=== PATIENT | female | born 1975 | race Caucasian/White ===

== ENCOUNTER 2021-09-17 03:40 | Observation (INO) ==
[2021-09-17] MEDS ORDERED: ONDANSETRON INJ 2 MG/ML 2 ML VIAL IV STA (04:20)
[2021-09-17] MEDS ORDERED: SODIUM CHLORIDE 0.9% 1000ML 1,000 ML IV ONE (04:20)
[2021-09-17] MEDS ORDERED: FAMOTIDINE 20MG IV PUSH 20 MG/5 ML SYR IV STA (04:20)
[2021-09-17] MEDS ORDERED: GI COCKTAIL ED USE PO ONE (04:20)
[2021-09-17 04:30] LABS: Basophils # (auto) 0.02 K/uL (0-0.2); Basophils % (auto) 0.2 %; Eosinophils # (auto) 0.21 K/uL (0-0.5); Eosinophils % (auto) 1.9 %; Hematocrit (blood only) 35.9 % (37-47); Hemoglobin 11.8 g/dL (12.0-16.0); Immature Granulocytes # (auto) 0.01 K/uL (0.00-0.02); Immature Granulocytes % (auto) 0.1 %; Lymphocytes % (auto) 18.6 %; Mean Corpuscular Hgb Conc 32.9 g/dL (32-36); Mean Corpuscular Volume 79.2 fL (80-100); Mean Platelet Volume 9.4 fL (7.4-10.4); Monocytes # (auto) 0.66 K/uL (0.11-0.59); Monocytes % (auto) 5.8 %; Neutrophils # (auto) 8.29 K/uL (1.4-6.5); Neutrophils % (auto) 73.4 %; Platelet Count 347 K/uL (130-400); RDW Coefficient of Variation 15.2 % (11.5-14.5); RDW Standard Deviation 44.5 fL (36.4-46.3); Red Blood Count 4.53 M/uL (4.2-5.4); White Blood Count 11.29 K/uL (4.8-10.8)
[2021-09-17 04:42] LABS: Troponin I < 0.03 ng/ml (0-0.04)
[2021-09-17 04:44] LABS: Prothrombin Time 10.6 Seconds (9.0-12.0)
[2021-09-17] MEDS ORDERED: KETOROLAC 30 MG/ML VIAL IV STA (04:44)
[2021-09-17 05:31] LABS: Alanine Aminotransferase 18 U/L (7-52); Albumin Globulin Ratio 1.6 (0.9-2); Albumin Level 4.3 gm/dl (3.4-5.0); Alkaline Phosphatase 90 U/L (34-104); Anion Gap 11 (3-11); Aspartate Aminotransferase 14 U/L (13-39); Bilirubin,Total 0.3 mg/dl (0.2-1.0); Blood Urea Nitrogen 13 mg/dl (6-23); Calcium 9.2 mg/dl (8.5-10.1); Carbon Dioxide 26 mmol/L (21-32); Chloride 100 mmol/L (98-107); Creatinine Clr Calc Pharmacy 162.2 ml/min; Est GFR (African American) 124.3 ml/min; Est GFR (Non-African American) 107.2 ml/min; Globulin 2.7 gm/dl (2.5-4.0); Glucose 141 mg/dl (70-99(Fasting)); Lipase 41 U/L (11-82); Potassium 3.3 mmol/L (3.5-5.1); Sodium 137 mmol/L (136-145)
--- NOTE | 2021-09-17 06:43 | Emergency Department Note ---
History of Present Illness General Chief complaint: Chest Pain Stated complaint: FATIGUE,CHEST LEXX Time Seen by Provider: 09/17/21 03:47 History of Present Illness Maximum Pain Intensity: 4 Debo is a 46-year-old female that presents to the emergency department for upper abdominal pain. She states that this pain started early this morning and rated it a 4/10. The pain is across her upper abdomen, below the breast line. The pain is more intense in the RUQ. It is described as a constant squeezing pain. She has had a stomach ulcer in the past and believes this feels similarly. She has been fighting a viral illness since last Thursday and does not know if this is associated with it. She reports feeling more fatigued lately, some low grade fevers, and nausea. She denies vomiting, shortness of breath, difficulty breathing, chest pain, palpitations, lower abdominal pain, urinary symptoms, or changes in bowel habits. She states last night, she ate egg drop soup for dinner. Home Medications Medication Instructions Recorded Confirmed Type Acetaminophen (Tylenol) 1,000 mg PO PRN #0 tab 11/13/11 History GABAPENTIN (NEURONTIN) 300 mg PO BID #0 cap 12/11/11 History Allergies Allergy/AdvReac Type Severity Reaction Status Date / Time No Known Allergies Allergy Mild Unverified 11/10/11 11:47 Past Med/Surg History Medical History No pertinent past medical history Social History Smoking Status: Never smoker Preferred Language: [place] Feels Safe at Home: Yes Review of Systems A total of 10 systems reviewed and were otherwise negative Physical Exam Vital Signs Vital Signs - 24 hr 09/17/21 03:41 09/17/21 04:10 09/17/21 06:00 Temperature 36.8 C Temperature Source Oral Pulse Rate 78 Pulse Rate [Apical] 77 Pulse Rhythm Regular Pulse Strength Normal Respiratory Rate 16 20 Respiratory Effort / Characteristics Non-Labored Spontaneous Respiratory Depth Normal Respiratory Pattern Regular Blood Pressure 171/102 H Blood Pressure [Right Arm] 164/94 H Blood Pressure Mean 125 Blood Pressure Mean [Right Arm] 117 Blood Pressure Position Lying Blood Pressure Position [Right Arm] Sitting Pulse Oximetry 97 97 Oxygen Delivery Method Room Air Room Air Room Air Sepsis Recent Fever Within 48 Hours Yes Sepsis New/Unexplained Change in Mental Status N/A Sepsis Action Taken by Nursing No Action Required VITALS: Vitals are noted on the nurse's note and reviewed by myself. Vital signs stable. GENERAL: This is a 46-year-old obese white female, in no acute distress, nondiaphoretic, well-developed well-nourished. SKIN: The skin was without rashes, erythema, edema, or bruising. There is no tenting of the skin. Capillary refill less than 2 seconds. HEAD: Normocephalic atraumatic. EYES: Conjunctivae without injection, sclerae without icterus. NECK: Supple without nuchal rigidity. No lymphadenopathy. Cervical spine is nontender. No JVD. HEART: Regular rate and rhythm without murmurs gallops or rubs. LUNGS: Clear to auscultation bilaterally without wheezes, rales or rhonchi. No retractions or accessory muscle use. ABDOMEN: Positive bowel sounds x 4. Normal tympanic percussion. Soft, nontender, without masses or organomegaly. Bernard sign negative. No guarding or rebound tenderness. MUSCULOSKELETAL: No muscle atrophy, erythema, or edema noted. Full range of motion without joint tenderness in all extremities. No tenderness to palpation. Normal gait. Strength 5/5 throughout. NEURO: Patient was alert and oriented to person place and time. No focal neurological deficits. Course Course The patient was seen and evaluated as above. An order was placed for continuous cardiac monitoring. The monitor shows a normal sinus rhythm at a rate of 77 bpm. IV access obtained, labs drawn. Patient medicated with IV fluids, Toradol, Pepcid, GI cocktail, Zofran Labs reviewed by myself. Imaging performed and reviewed by myself and radiologist as noted. I discussed the findings with the patient at bedside. She was reassessed and is feeling better but continues to complain of right upper quadrant pain. She continues to have right upper quadrant tenderness palpation. [facility] and evaluate the patient for [facility] but requested I speak with general surgery. I discussed the case with Ranjana Hernandez PA-C with general surgery. Administered Medications Discontinued Medications Al Hydrox/Mg Hydrox/Simethicone (Gi Cocktail Ed Use) 1 dose PO ONE ONE Stop: 09/17/21 04:21 Last Admin: 03/15/22 04:41 Dose: 1 dose Documented by: [id number] Sodium Chloride (Nss 1000ml) 1,000 mls @ 999 mls/hr IV .Q1H1M ONE Stop: 09/17/21 05:20 Last Infusion: 09/17/21 06:09 Dose: 0 mls/hr Documented by: [id number] Admin: 09/17/21 04:41 Dose: 999 mls/hr Documented by: [id number] Famotidine (Pepcid 20mg Iv Push) 20 mg in 5 mls @ 2.5 mls/min IV NOW STA Stop: 09/17/21 04:21 Last Admin: 09/17/21 04:40 Dose: 2.5 mls/min Documented by: [id number] Ketorolac Tromethamine (Ketorolac 30 Mg/Ml Vial) 30 mg IV NOW STA Stop: 09/17/21 04:45 Last Admin: 09/17/21 04:52 Dose: 30 mg Documented by: [id number] Ondansetron HCl (Ondansetron Inj 2 Mg/Ml 2 Ml Vial) 4 mg IV NOW STA Stop: 09/17/21 04:21 Last Admin: 09/17/21 04:40 Dose: 4 mg Documented by: [id number] Medical Decision Making Differential Diagnosis Etiologies such as appendicitis, diverticulitis, obstruction, inflammatory bowel disease, renal colic, PUD, biliary pathology, pancreatitis, mesenteric ischemia, aortic pathology, infections, genitourinary, UTI, perforated viscus, as well as others were entertained. Medical Records Attestation: I reviewed the patient's medical records. Home Medications Current Medication List: was personally reviewed by me Laboratory Data Attestation: I reviewed the patient's lab results. Mild leukocytosis of 11,000. No concerning anemia or thrombocytopenia. Renal, hepatic function and electrolytes without significant abnormality. Troponin negative. INR 1.0. Lipase 41. Procalcitonin negative Result diagrams: 09/17/21 04:06 09/17/21 04:06 Lab Results 09/17/21 09/17/21 09/17/21 Range/Units 04:06 04:06 04:06 WBC 11.29 H (4.8-10.8) K/uL RBC 4.53 (4.2-5.4) M/uL Hgb 11.8 L (12.0-16.0) g/dL Hct 35.9 L (37-47) % MCV 79.2 L (80-100) fL MCH 26.0 (25-34) pg MCHC 32.9 (32-36) g/dL RDW Std Deviation 44.5 (36.4-46.3) fL RDW Coeff of Dylan 15.2 H (11.5-14.5) % Plt Count 347 (130-400) K/uL MPV 9.4 (7.4-10.4) fL Immature Gran % (Auto) 0.1 % Neut % (Auto) 73.4 % Lymph % (Auto) 18.6 % Berks % (Auto) 5.8 % Eos % (Auto) 1.9 % Baso % (Auto) 0.2 % Neut # (Auto) 8.29 H (1.4-6.5) K/uL Lymph # (Auto) 2.10 (1.2-3.4) K/uL Berks # (Auto) 0.66 H (0.11-0.59) K/uL Eos # (Auto) 0.21 (0-0.5) K/uL Baso # (Auto) 0.02 (0-0.2) K/uL Immature Gran # (Auto) 0.01 (0.00-0.02) K/uL PT 10.6 (9.0-12.0) Seconds INR 1.0 (0.9-1.1) Sodium 137 (136-145) mmol/L Potassium 3.3 L (3.5-5.1) mmol/L Chloride 100 (98-107) mmol/L Carbon Dioxide 26 (21-32) mmol/L Anion Gap 11 (3-11) BUN 13 (6-23) mg/dl Creatinine 0.65 (0.6-1.2) mg/dl Est Cr Clr Drug Dosing 162.2 ml/min Est GFR ( Amer) 124.3 ml/min Est GFR (Non-Af Amer) 107.2 ml/min BUN/Creatinine Ratio 20.0 (10-20) Glucose 141 H (70-99(Fasting)) mg/dl Calcium 9.2 (8.5-10.1) mg/dl Magnesium 2.0 (1.7-2.4) mg/dl Total Bilirubin 0.3 (0.2-1.0) mg/dl AST 14 (13-39) U/L ALT 18 (7-52) U/L Alkaline Phosphatase 90 (34-104) U/L Troponin I < 0.03 (0-0.04) ng/ml Total Protein 7.0 (6.0-8.3) gm/dl Albumin 4.3 (3.4-5.0) gm/dl Globulin 2.7 (2.5-4.0) gm/dl Albumin/Globulin Ratio 1.6 (0.9-2) Lipase 41 (11-82) U/L Procalcitonin (0-0.5) ng/ml 09/17/21 Range/Units 04:52 WBC (4.8-10.8) K/uL RBC (4.2-5.4) M/uL Hgb (12.0-16.0) g/dL Hct (37-47) % MCV (80-100) fL MCH (25-34) pg MCHC (32-36) g/dL RDW Std Deviation (36.4-46.3) fL RDW Coeff of Dylan (11.5-14.5) % Plt Count (130-400) K/uL MPV (7.4-10.4) fL Immature Gran % (Auto) % Neut % (Auto) % Lymph % (Auto) % Berks % (Auto) % Eos % (Auto) % Baso % (Auto) % Neut # (Auto) (1.4-6.5) K/uL Lymph # (Auto) (1.2-3.4) K/uL Berks # (Auto) (0.11-0.59) K/uL Eos # (Auto) (0-0.5) K/uL Baso # (Auto) (0-0.2) K/uL Immature Gran # (Auto) (0.00-0.02) K/uL PT (9.0-12.0) Seconds INR (0.9-1.1) Sodium (136-145) mmol/L Potassium (3.5-5.1) mmol/L Chloride (98-107) mmol/L Carbon Dioxide (21-32) mmol/L Anion Gap (3-11) BUN (6-23) mg/dl Creatinine (0.6-1.2) mg/dl Est Cr Clr Drug Dosing ml/min Est GFR ( Amer) ml/min Est GFR (Non-Af Amer) ml/min BUN/Creatinine Ratio (10-20) Glucose (70-99(Fasting)) mg/dl Calcium (8.5-10.1) mg/dl Magnesium (1.7-2.4) mg/dl Total Bilirubin (0.2-1.0) mg/dl AST (13-39) U/L ALT (7-52) U/L Alkaline Phosphatase (34-104) U/L Troponin I (0-0.04) ng/ml Total Protein (6.0-8.3) gm/dl Albumin (3.4-5.0) gm/dl Globulin (2.5-4.0) gm/dl Albumin/Globulin Ratio (0.9-2) Lipase (11-82) U/L Procalcitonin < 0.05 (0-0.5) ng/ml Imaging Data Attestation: I personally reviewed and interpreted this imaging study as follows: Radiologist's Impression: Abdomen Ultrasound 09/17/21 04:21 ABDOMINAL ULTRASOUND, RIGHT UPPER QUADRANT HISTORY: RUQ, epigastric pain/tenderness. COMPARISON: None. FINDINGS: Hepatic echogenicity is increased. No hepatic lesions are identified although sensitivity is diminished on this exam. There is no biliary ductal dilatation. Common bile duct measures 4 mm in caliber. The gallbladder is distended. There are multiple gallstones within the gallbladder. No gallbladder wall thickening. Sonographic Bernard sign could not be assessed. No pericholecystic fluid. Pancreas is largely obscured by overlying bowel gas. There is no right hydronephrosis. IMPRESSION: 1. Cholelithiasis. Moderate gallbladder distention. Unable to assess for sonographic Bernard sign. Acute cholecystitis cannot be excluded. If indicated, a nuclear medicine hepatobiliary scan could be obtained. 2. No biliary ductal dilatation. 3. Hepatic steatosis. ACT 112: Negative or not required by law. Electronically signed by: Anibal Arroyo M.D. 09/17/2021 6:41 AM Chest X-Ray 09/17/21 04:21 XR chest 1V portable CLINICAL HISTORY: Epigastric pain. COMPARISON STUDY: No previous studies for comparison. FINDINGS: Lung volumes are normal. Lungs are clear. There is no pneumothorax or pleural effusion. There is mild enlargement of the cardiac silhouette. Mediastinal contours are normal. There is no evidence for pulmonary edema. IMPRESSION: No acute cardiopulmonary findings. ACT 112: Negative or not required by law. Electronically signed by: Anibal Arroyo M.D. 09/17/2021 6:43 AM Blood Pressure Blood Pressure Findings: Elevated blood pressure Blood Pressure Disposition: elevated BP felt to be situational MDM Narrative 36-year-old female patient presents to the emergency department today for evaluation of epigastric and right upper quadrant pain. The patient has had intermittent fevers. Ultrasound performed to evaluate her symptoms. She was found to have cholelithiasis and moderate gallbladder distention. Acute cholecystitis cannot be excluded. The patient's abdominal examination was repeated several times throughout her stay. Her symptoms did not resolve and she continued to be tender in the RUQ. She does have a WBC count. I do recommend f urther evaluation of the gallbladder. The patient will be admitted to the [facility] Hospitalist service. Please see hospitalist dictation regarding ongoing management and care of this patient. The chart was completed utilizing [employer] Speech voice recognition software. Grammatical errors, random word insertions, pronoun errors, and incomplete sentences are an occasional consequence of this system due to software limitations, ambient noise, and hardware issues. Any formal questions or concerns about the content, text, or information contained within the body of this dictation should be directly addressed to the provider for clarification. Impression & Plan Acute epigastric pain, Cholelithiasis, Cholecystitis Discharge Plan Visit Data Chief Complaint: Chest Pain Stated Complaint: FATIGUE,CHEST LEXX ED Provider: Willian Lozano ED Midlevel Provider: Carolina Leroy Discharge Problem: Acute epigastric pain, Cholelithiasis, Cholecystitis Patient Disposition: Admitted As Inpatient Forms Stand Alone Forms: [employer] Prescriptions Prescriptions: No Action Acetaminophen (Tylenol) 500 MG tablet 1,000 mg PO PRN Qty: 0 RF: 0 GABAPENTIN (NEURONTIN) 300 MG capsule 300 mg PO BID Qty: 0 RF: 0 Referrals Referrals: Mariama Scott MD [Primary Care Provider] -
--- NOTE | 2021-09-17 06:43 | Ultrasound Report ---
ABDOMINAL ULTRASOUND, RIGHT UPPER QUADRANT HISTORY: RUQ, epigastric pain/tenderness. COMPARISON: None. FINDINGS: Hepatic echogenicity is increased. No hepatic lesions are identified although sensitivity i s diminished on this exam. There is no biliary ductal dilatation. Common bile duct measures 4 mm in c aliber. The gallbladder is distended. There are multiple gallstones within the gallbladder. No gallbl adder wall thickening. Sonographic Bernard sign could not be assessed. No pericholecystic fluid. Pancr eas is largely obscured by overlying bowel gas. There is no right hydronephrosis. IMPRESSION: 1. Cholelithiasis. Moderate gallbladder distention. Unable to assess for sonographic Bernard sign. Acu te cholecystitis cannot be excluded. If indicated, a nuclear medicine hepatobiliary scan could be obt ained. 2. No biliary ductal dilatation. 3. Hepatic steatosis. ACT 112: Negative or not required by law. Electronically signed by: Anibal Arroyo M.D. 09/17/2021 6:41 AM
--- NOTE | 2021-09-17 06:45 | XRay Report ---
XR chest 1V portable CLINICAL HISTORY: Epigastric pain. COMPARISON STUDY: No previous studies for comparison. FINDINGS: Lung volumes are normal. Lungs are clear. There is no pneumothorax or pleural effusion. The re is mild enlargement of the cardiac silhouette. Mediastinal contours are normal. There is no eviden ce for pulmonary edema. IMPRESSION: No acute cardiopulmonary findings. ACT 112: Negative or not required by law. Electronically signed by: Anibal Arroyo M.D. 09/17/2021 6:43 AM
[2021-09-17 07:06] LABS: Appearance Urine Clear (Clear); Bilirubin Urine Negative (Negative); Blood Urine Negative (Negative); Color Urine Yellow; Glucose Urine UA Negative (Negative); Ketones Urine Negative (Negative); Leukocyte Esterase Urine Negative (Negative); Nitrite Urine Negative (Negative); Protein Urine Negative (Negative); Urobilinogen Urine Negative (Negative)
--- NOTE | 2021-09-17 07:53 | Surgery Consultation ---
Date of Consultation September 17, 2021 Assessment & Plan (1) Cholelithiasis: No inflammatory changes on ultrasound, mild WBC elevation. Will discuss with Dr. White before ordering HIDA. as above. pt seen. feeling improvement after pain meds. HIDA + for acute cholecystitis. discussed options/risks ( bleeding/infection/injury to other organs/bile duct injury or leaks/dvt/pe/mi/cva etc...questions answered. agreeable. will proceed with bora peres. History of Present Illness History of Present Illness 46 y/o female woke up overnight with epigastric to RUQ pain. Had egg drop soup and pie at dinner. No nausea or vomiting. Several members in her house have had a viral illness although tested negative for COVID. Has a history of gastric ulcers but no recent symptoms. No bloating, fatty food intolerance, occasionally has heartburn. Allergies Allergy/AdvReac Type Severity Reaction Status Date / Time No Known Allergies Allergy Mild Unverified 09/17/21 07:27 Home Medications Medication Instructions Recorded Confirmed Type gabapentin 300 mg capsule 300 mg PO HS #0 cap 12/11/11 09/17/21 History amlodipine 10 mg tablet 10 mg PO QAM 09/17/21 09/17/21 History chlorthalidone 25 mg tablet 25 mg PO QAM 09/17/21 09/17/21 History escitalopram oxalate 20 mg tablet 20 mg PO DAILY 09/17/21 09/17/21 History (Lexapro) labetalol 200 mg tablet 200 mg PO BID 09/17/21 09/17/21 History losartan 100 mg tablet 100 mg PO QAM 09/17/21 09/17/21 History Patient History Medical History (Updated 09/17/21 @ 09:25 by Leeann Rob PA-C) Essential hypertension CHELLY (generalized anxiety disorder) Obesity Obstructive sleep apnea Prediabetes RLS (restless legs syndrome) Surgical History History of elbow surgery Fracture 1988 Family History (Updated 09/17/21 @ 09:12 by Leeann Rob PA-C) Father Heart disease CAD s/p multiple stents Mother Heart disease heart murmur now s/p valve replacement Brother Heart disease MIs in his 50s, heart murmur Denies family history of Gallbladder disease Social History Smoking Status: Never smoker Preferred Language: Mongolian Feels Safe at Home: Yes Review of Systems Constitutional: no fever and no chills Gastrointestinal: + abdominal pain and + heartburn; no bloating, no nausea, no vomiting and no change in bowel habits Physical Exam Constitutional: WD/WN, vitals as above Respiratory: normal respiratory effort, lungs clear to auscultation Cardiovascular: RRR, no murmur, no edema Gastrointestinal (Abdomen): Inspection/Auscultation: abdomen not distended Percussion/Palpation: + abdomen tender (RUQ) and abdomen soft Results & Data ([facility]) Vital Signs (Past 12 Hours) Vital Signs Temp Pulse Pulse Resp BP BP Pulse Ox 09/17/21 06:00 77 20 164/94 H 97 09/17/21 03:41 36.8 C 78 16 171/102 H 97 PG Care Time/CCT Total # of Minutes Spent Total Time Spent with Patient: Total time spent is greater than 50% in coordination of care (as documented) at patient's floor/unit and/or counseling patient: Coding Level of Care Code 88033 Inpt Consult Level 4 Diagnoses Cholelithiasis K80.20
[2021-09-17] MEDS ORDERED: CONSULT PHARMACY ONE (07:56)
[2021-09-17] MEDS ORDERED: POTASSIUM CHLORIDE 10 MEQ TABCR PO ONE (07:56)
--- NOTE | 2021-09-17 08:13 | History & Physical Report ---
Date of Service September 17, 2021 Assessment & Plan (1) RUQ pain: Plan: With evidence of cholelithiasis on U/S, recent low-grade fevers, and mild leukocytosis - clinical picture concerning for acute cholecystitis but not definitively confirmed with U/S - Admit for observation, serial abdominal exams, and additional w/u - Appreciate surgery input - will keep pt NPO for now, HIDA pending - Continue pain med prn - Labs in AM - Empiric antibiotics - blood cultures ordered. (2) Cholelithiasis: Plan: See plan for #1 (3) Essential hypertension: Plan: Hx of difficult to control BP - follows with nephrology. Currently on four medications for BP control - Continue home meds and monitor (4) Prediabetes: Plan: Per pt, no specific treatment - Check A1c (5) Obstructive sleep apnea: Plan: Uses variable CPAP with setting of 5-13, avg 9. Willing to bring in her own machine to use while admitted (6) CHELLY (generalized anxiety disorder): Plan: - Continue Lexapro Plan: Pt seen and reviewed with attending physician, Dr. Mccloud. Plan of care discussed and as outlined above. DVT Prophlaxis: SCDs Code Status: Full code Valeria Rob PA-C History of Present Illness Chief Complaint: Upper abdominal pain Primary Care Provider: Mariama Scott MD This is a 46 y/o female with a PMH of HTN, SAMIRA on CPAP, depression/anxiety, and prediabetes and LMP of 3 wks ago who presented to the ED early this morning with upper abdominal pain. She reports that everyone at home has been sick with a viral URI for the past week (COVID tests have been negative). She developed low-grade fevers, chills, and some myalgias 2-3 days ago with a Tmax of 101, but never developed the cough, congestion that the rest of her family had. Two nights ago, she developed extreme fatigue and went to bed around 8pm and slept through until the next day (yesterday) at 4 pm. She felt a little better when she woke up yesterday afternoon so she ate egg drop soup and pie last evening. [place] fine when she went to bed around 9:30 pm. At 1:30 am today, she was woken up by severe squeezing upper abdominal pain that felt like a band around her upper abdomen, under her breasts, around to her back. She also had sharp pain in her right side with taking deep breaths. She had associated nausea but no vomiting. She tried taking Tums and Tylenol without relief so she came to the ED for evaluation around 3:30 am. No jaundice, dark urine, diarrhea. She received a GI cocktail in the ED with minimal response but did have some relief with famotidine and ketorolac. Currently, the pain seems to have localized to the RUQ - still squeezing with intermittent sharp pains. Nausea improved at present after anti-emetic. She has a hx of gastric ulcer in for which she was empirically treated with improvement. She denies prior EGD. Her current pain is different than the pain with the PUD. She denies melena or hematochezia. She has occasional heartburn at baseline for which she uses prn Tums with relief. She has a history of HTN that has been difficult to control and for which she follows with nephrology - monitors her BP at home and it is usually 130-140/90. Echo in 2019 due to a question of heart murmur on exam - normal LV chamber size with mild concentric LVH, LVEF = 60%, normal diastolic dysfunction, no significant valvular pathology. Allergies Allergy/AdvReac Type Severity Reaction Status Date / Time No Known Allergies Allergy Mild Unverified 09/17/21 07:27 Home Medications Medication Instructions Recorded Confirmed Type gabapentin 300 mg capsule 300 mg PO HS #0 cap 12/11/11 09/17/21 History amlodipine 10 mg tablet 10 mg PO QAM 09/17/21 09/17/21 History chlorthalidone 25 mg tablet 25 mg PO QAM 09/17/21 09/17/21 History escitalopram oxalate 20 mg tablet 20 mg PO DAILY 09/17/21 09/17/21 History (Lexapro) labetalol 200 mg tablet 200 mg PO BID 09/17/21 09/17/21 History losartan 100 mg tablet 100 mg PO QAM 09/17/21 09/17/21 History Past Med/Surg History Medical History Essential hypertension CHELLY (generalized anxiety disorder) Obesity Obstructive sleep apnea Prediabetes RLS (restless legs syndrome) Surgical History History of elbow surgery Fracture 1988 Family History Father Heart disease CAD s/p multiple stents Mother Heart disease heart murmur now s/p valve replacement Brother Heart disease MIs in his 50s, heart murmur Denies family history of Gallbladder disease Social History Smoking Status: Never smoker Hx Alcohol Use: No Hx Substance Use: No Preferred Language: Swiss Communication Ability: Effective Environmental Associate Required: No Beliefs That Will Affect Care: None Current Living Situation: Spouse Current Living Situation Comment: home with spouse/ 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 Other Information That Helps Us Care for You: No Feels Safe at Home: Yes Safety Concerns: Feels Safe At This Time Assistive Devices: CPAP Review of Systems Review of Systems: All systems reviewed & are unremarkable except as noted in HPI & below Constitutional: + fever, + chills and + fatigue Eyes: no diplopia Ear, Nose, Mouth, Throat: no nasal congestion, no nasal discharge and no sore throat Respiratory: no cough, no dyspnea and no wheezing Cardiovascular: + lightheadedness; no chest pain, no palpitations, no syncope and no edema Gastrointestinal: as per Subjective / HPI Genitourinary: no dysuria, no urinary frequency and no hematuria Musculoskeletal: + myalgia; no back pain, no neck pain and no muscle weakness Integumentary: + problem reported (few spots of eczema but not requiring treatment at present); no yellowing of the skin Neurologic: + dizziness and + headache(s); no falls and no paresthesia Psychiatric: no depression and no anxiety Physical Exam Constitutional: well developed and well nourished; no acute distress Eyes: + anicteric sclerae Neck: trachea midline Respiratory: no respiratory distress and no labored breathing Auscultation: lungs clear to auscultation bilaterally; no rales, no rhonchi and no wheezes Cardiovascular: Rate/Rhythm: regular rate and regular rhythm Vessels: dorsalis pedis pulses present and radial pulses present Gastrointestinal (Abdomen): Inspection/Auscultation: normal bowel sounds; abdomen not distended Percussion/Palpation: + abdomen tender (in RUQ, o/w NT) and abdomen soft Musculoskeletal: Head/Neck/Chest: normocephalic, head atraumatic and neck supple Skin: no jaundice Neurologic: moves all extremities; no focal motor deficits Psychiatric: A+Ox3, euthymic affect Results & Data Results & Data ([facility]) Vital Signs (Past 12 Hours) Vital Signs Temp Pulse Pulse Resp BP BP Pulse Ox 09/17/21 06:00 77 20 164/94 H 97 09/17/21 03:41 36.8 C 78 16 171/102 H 97 Laboratory Results Laboratory Results - last 24 hr 09/17/21 09/17/21 09/17/21 04:06 04:06 04:06 WBC 11.29 H RBC 4.53 Hgb 11.8 L Hct 35.9 L MCV 79.2 L MCH 26.0 MCHC 32.9 RDW Std Deviation 44.5 RDW Coeff of Dylan 15.2 H Plt Count 347 MPV 9.4 Immature Gran % (Auto) 0.1 Neut % (Auto) 73.4 Lymph % (Auto) 18.6 [place] % (Auto) 5.8 Eos % (Auto) 1.9 Baso % (Auto) 0.2 Neut # (Auto) 8.29 H Lymph # (Auto) 2.10 [place] # (Auto) 0.66 H Eos # (Auto) 0.21 Baso # (Auto) 0.02 Immature Gran # (Auto) 0.01 PT 10.6 INR 1.0 Sodium 137 Potassium 3.3 L Chloride 100 Carbon Dioxide 26 Anion Gap 11 BUN 13 Creatinine 0.65 Est Cr Clr Drug Dosing 162.2 Est GFR ( Amer) 124.3 Est GFR (Non-Af Amer) 107.2 BUN/Creatinine Ratio 20.0 Glucose 141 H Calcium 9.2 Magnesium 2.0 Total Bilirubin 0.3 AST 14 ALT 18 Alkaline Phosphatase 90 Troponin I < 0.03 Total Protein 7.0 Albumin 4.3 Globulin 2.7 Albumin/Globulin Ratio 1.6 Lipase 41 Procalcitonin Urine Color Urine Appearance Urine pH Ur Specific [place] Urine Protein Urine Glucose (UA) Urine Ketones Urine Blood Urine Nitrite Urine Bilirubin Urine Urobilinogen Ur Leukocyte Esterase POC Ur Test SARS-CoV-2, RNA, NAAT 09/17/21 09/17/21 09/17/21 04:52 06:52 06:52 WBC RBC Hgb Hct MCV MCH MCHC RDW Std Deviation RDW Coeff of Dylan Plt Count MPV Immature Gran % (Auto) Neut % (Auto) Lymph % (Auto) [place] % (Auto) Eos % (Auto) Baso % (Auto) Neut # (Auto) Lymph # (Auto) [place] # (Auto) Eos # (Auto) Baso # (Auto) Immature Gran # (Auto) PT INR Sodium Potassium Chloride Carbon Dioxide Anion Gap BUN Creatinine Est Cr Clr Drug Dosing Est GFR ( Amer) Est GFR (Non-Af Amer) BUN/Creatinine Ratio Glucose Calcium Magnesium Total Bilirubin AST ALT Alkaline Phosphatase Troponin I Total Protein Albumin Globulin Albumin/Globulin Ratio Lipase Procalcitonin < 0.05 Urine Color Yellow Urine Appearance Clear Urine pH 7.0 Ur Specific [place] 1.020 Urine Protein Negative Urine Glucose (UA) Negative Urine Ketones Negative Urine Blood Negative Urine Nitrite Negative Urine Bilirubin Negative Urine Urobilinogen Negative Ur Leukocyte Esterase Negative POC Ur Test Pending SARS-CoV-2, RNA, NAAT 09/17/21 07:20 WBC RBC Hgb Hct MCV MCH MCHC RDW Std Deviation RDW Coeff of Dylan Plt Count MPV Immature Gran % (Auto) Neut % (Auto) Lymph % (Auto) [place] % (Auto) Eos % (Auto) Baso % (Auto) Neut # (Auto) Lymph # (Auto) [place] # (Auto) Eos # (Auto) Baso # (Auto) Immature Gran # (Auto) PT INR Sodium Potassium Chloride Carbon Dioxide Anion Gap BUN Creatinine Est Cr Clr Drug Dosing Est GFR ( Amer) Est GFR (Non-Af Amer) BUN/Creatinine Ratio Glucose Calcium Magnesium Total Bilirubin AST ALT Alkaline Phosphatase Troponin I Total Protein Albumin Globulin Albumin/Globulin Ratio Lipase Procalcitonin Urine Color Urine Appearance Urine pH Ur Specific [place] Urine Protein Urine Glucose (UA) Urine Ketones Urine Blood Urine Nitrite Urine Bilirubin Urine Urobilinogen Ur Leukocyte Esterase POC Ur Test SARS-CoV-2, RNA, NAAT NEGATIVE Diagnostic Findings Chest X-ray 09/17/21 - IMPRESSION: No acute cardiopulmonary findings. Abdominal U/S 09/17/21 - IMPRESSION: 1. Cholelithiasis. Moderate gallbladder distention. Unable to assess for sonographic Bernard sign. Acute cholecystitis cannot be excluded. If indicated, a nuclear medicine hepatobiliary scan could be obtained. 2. No biliary ductal dilatation. 3. Hepatic steatosis. Medications Administered Discontinued Medications Al Hydrox/Mg Hydrox/Simethicone (Gi Cocktail Ed Use) 1 dose PO ONE ONE Stop: 09/17/21 04:21 Last Admin: 09/17/21 04:41 Dose: 1 dose Documented by: [id number] Sodium Chloride (Nss 1000ml) 1,000 mls @ 999 mls/hr IV .Q1H1M ONE Stop: 09/17/21 05:20 Last Infusion: 09/17/21 06:09 Dose: 0 mls/hr Documented by: [id number] Admin: 09/17/21 04:41 Dose: 999 mls/hr Documented by: [id number] Famotidine (Pepcid 20mg Iv Push) 20 mg in 5 mls @ 2.5 mls/min IV NOW STA Stop: 09/17/21 04:21 Last Admin: 09/17/21 04:40 Dose: 2.5 mls/min Documented by: [id number] Ketorolac Tromethamine (Ketorolac 30 Mg/Ml Vial) 30 mg IV NOW STA Stop: 09/17/21 04:45 Last Admin: 09/17/21 04:52 Dose: 30 mg Documented by: [id number] Ondansetron HCl (Ondansetron Inj 2 Mg/Ml 2 Ml Vial) 4 mg IV NOW STA Stop: 09/17/21 04:21 Last Admin: 09/17/21 04:40 Dose: 4 mg Documented by: [id number] Code Status & VTE Plan VTE Prophylaxis Plan VTE Prophylaxis will be ordered: Yes Supervising Physician Co-Signing Physician Notes Patient is a 46-year-old female with history of hypertension, obstructive sleep apnea, mood disorder and other medical problems presents with history of abdominal pain associated with flulike symptoms for the past week. Patient states developing low-grade fever associated with chills, myalgias for 2-3 days and also noticed her family members with similar symptoms. She was tested negative for Covid. Patient states that she developed severe upper abdominal pain, bandlike, sharp, worsens with deep breathing, associated with nausea overnight and presented to ED for further evaluation. Please review HPI for complete details of presentation. Blood work suggestive of leukocytosis 11.2 9K, hypokalemia 3.3, glucose 144. HIDA scan suggestive of cystic duct obstruction, acute cholecystitis. Chest x-ray showed no acute findings. EKG showed normal sinus rhythm, QTC 470. On exam patient is morbidly obese, no apparent distress, normocephalic atraumatic, EOMI, normal breath sounds, clear to auscultation, S1-S2, no murmur, no pedal edema, abdomen soft, tenderness right upper quadrant, epigastric region, no guarding or rigidity, normal bowel sounds, alert, awake, oriented, grossly no focal deficits. Patient is admitted for management of acute cholecystitis. Keep her n.p.o. Gentle IV fluids, pain control. Consulted surgery. Started on Zosyn. Blood cultures obtained. Antiemetics as needed. I personally reviewed the record. Patient is interviewed and examined at bedside. Patient's care is coordinated with Leeann Spencer. Please refer to the documentation above for details of patient's presentation and for discussion of other issues.
[2021-09-17] MEDS ORDERED: PROMETHAZINE HCL 6.25 MG in SODIUM CHLORIDE 0.9% 50 ML IV PRN (10:23)
[2021-09-17] MEDS ORDERED: MoRPHine SULFATE 2 MG/ML CARP ONE (12:37)
--- NOTE | 2021-09-17 13:18 | Nuclear Medicine Report ---
NUCLEAR MEDICINE HEPATOBILIARY SCAN HISTORY: RUQ pain? cholecystitis COMPARISON: Abdominal ultrasound 09/17/2021. TECHNIQUE: Immediately following the intravenous administration of 5.0 mCi Tc-99m Choletec, dynamic a nterior abdominal imaging was performed. FINDINGS: Uniform hepatic tracer accumulation is shown. Prompt intrahepatic biliary excretion is seen. The comm on bile duct and small bowel are visualized at 15 minutes. The gallbladder is not identified during t he initial 60 minutes of imaging. Therefore, 2 mg of intravenous morphine was administered and an add itional 30 minutes was obtained. The gallbladder was not identified during the additional 30 minutes. Therefore, this is consistent with cystic duct obstruction/acute cholecystitis. IMPRESSION: Above findings consistent with cystic duct obstruction/acute cholecystitis. ACT 112: Negative or not required by law. Electronically signed by: Mikel Parrish M.D. 09/17/2021 1:17 PM
[2021-09-17] MEDS ORDERED: ACETAMINOPHEN 325 MG TAB PO PRN (15:27)
[2021-09-17] MEDS ORDERED: MoRPHine SULFATE 2 MG/ML CARP IV PRN (15:27)
[2021-09-17] MEDS ORDERED: POLYETHYLENE (MIRALAX) 17 GM PACK PO PRN (15:27)
[2021-09-17] MEDS ORDERED: FAMOTIDINE 20 MG in SYRINGE 3 ML IV PRN (15:27)
[2021-09-17] MEDS ORDERED: PIPERACILL/TAZOBAC CONSULT ACTIVE PRN (15:43)
[2021-09-17] MEDS ORDERED: PIPERACILLIN/TAZOBACTAM 4.5 GM in DEXTROSE 5% 100 ML IV ONE (16:00)
[2021-09-17] MEDS ORDERED: MIDAZOLAM HCL 1 MG/ML 2ML VIAL ONE (16:34)
[2021-09-17] MEDS ORDERED: fentaNYL citrate 100 MCG/2 ML VIAL ONE (16:35)
[2021-09-17] MEDS: NSS + 20MEQ KCL 20 MEQ/1,000 ML BAG IV SCH (17:03)
--- NOTE | 2021-09-17 17:05 | Anesthesiology Consultation ---
Date of Service September 17, 2021 Assessment & Plan (1) Encounter for pre-operative examination: Chart Review Chart Review: entry level manufacturing engineer initiated History Surgery Operation Date: 09/17/21 12:05 Proposed Procedures p Laparoscopic Cholecystectomy - Yunior White DO Height/Weight Height: 5 ft 8 in Weight: 133.9 kg Allergies Allergy/AdvReac Type Severity Reaction Status Date / Time No Known Allergies Allergy Mild Unverified 09/17/21 07:27 Medications Home Medications Medication Instructions Recorded Confirmed Last Taken gabapentin 300 mg capsule 300 mg PO HS #0 cap 12/11/11 09/17/21 09/16/21 amlodipine 10 mg tablet 10 mg PO QAM 09/17/21 09/17/21 09/16/21 chlorthalidone 25 mg tablet 25 mg PO QAM 09/17/21 09/17/21 09/16/21 escitalopram oxalate 20 mg tablet 20 mg PO DAILY 09/17/21 09/17/21 09/16/21 (Lexapro) labetalol 200 mg tablet 200 mg PO BID 09/17/21 09/17/21 09/16/21 losartan 100 mg tablet 100 mg PO QAM 09/17/21 09/17/21 09/16/21 NPO Date Last Intake of Fluids: 09/17/21 Time Last Intake of Fluids: 14:00 Last Intake of Fluids Comment: sips/ chips Date Last Intake of Solids: 09/16/21 Time Last Intake of Solids: 17:00 Past Medical History Medical History Essential hypertension CHELLY (generalized anxiety disorder) Obesity Obstructive sleep apnea Prediabetes RLS (restless legs syndrome) Past Family History Family History Father Heart disease CAD s/p multiple stents Mother Heart disease heart murmur now s/p valve replacement Brother Heart disease MIs in his 50s, heart murmur Denies family history of Gallbladder disease Past Surgical History Surgical History History of elbow surgery Fracture 1988 Social History Smoking Status: Never smoker Hx Alcohol Use: No Hx Substance Use: No Physical Exam Vital Signs Last Vital Signs Temp 98.8 F 09/17/21 16:00 Pulse 96 H 09/17/21 16:00 Resp 19 09/17/21 16:00 BP 153/89 H 09/17/21 16:00 Pulse Ox 97 09/17/21 16:00 Testing Laboratory Results 09/17/21 04:06 09/17/21 04:06 PT 10.6 Seconds (9.0-12.0) 09/17/21 04:06 INR 1.0 (0.9-1.1) 09/17/21 04:06 Urine Color Yellow 09/17/21 06:52 Urine Appearance Clear (Clear) 09/17/21 06:52 Urine pH 7.0 (4.5-7.5) 09/17/21 06:52 Ur Specific [place] 1.020 (1.000-1.030) 09/17/21 06:52 Urine Protein Negative (Negative) 09/17/21 06:52 Urine Glucose (UA) Negative (Negative) 09/17/21 06:52 Urine Ketones Negative (Negative) 09/17/21 06:52 Urine Nitrite Negative (Negative) 09/17/21 06:52 Ur Leukocyte Esterase Negative (Negative) 09/17/21 06:52 09/17/21 06:52 POC Ur Test NEG Electrocardiogram Date: 09/17/21 Findings: + NSR @ (70 bpm)
[2021-09-17] MEDS ORDERED: ONDANSETRON INJ 2 MG/ML 2 ML VIAL IV PRN ×2 (17:06→20:55)
[2021-09-17] MEDS ORDERED: ATROPINE SULFATE 0.1 MG/ML 10ML SYR IV PRN (17:06)
[2021-09-17] MEDS ORDERED: ePHEDrine sulfate 50 MG/ML AMP IV PRN (17:06)
[2021-09-17] MEDS: LABETALOL HCL 200 MG TAB PO SCH ×2 (17:06→22:50)
[2021-09-17] MEDS: ESCITALOPRAM OXALATE 20 MG TAB PO SCH (17:07)
[2021-09-17] MEDS: amLODIPine BESYLATE 5 MG TAB PO SCH (17:07)
[2021-09-17] MEDS: LOSARTAN POTASSIUM 50 MG TAB PO SCH (17:07)
[2021-09-17] MEDS ORDERED: BUPIVACAINE 0.5 % 5 MG/1 ML MPF 30ML VIAL ONE (17:08)
[2021-09-17] MEDS ORDERED: EPINEPHrine INJ 1 MG/ML AMP ONE (17:08)
[2021-09-17] MEDS ORDERED: SCOPOLAMINE 1 MG TDSY TD ONE (17:20)
[2021-09-17] MEDS: fentaNYL citrate 100 MCG/2 ML VIAL IV PRN ×2 (19:21→19:32)
[2021-09-17] MEDS ORDERED: PROMETHAZINE HCL INJ 25 MG/ML 1 ML VIAL ONE (19:28)
[2021-09-17] MEDS ORDERED: SODIUM CHLORIDE 0.9% 50 ML BAG ONE (19:28)
[2021-09-17] MEDS ORDERED: SCOPOLAMINE 1 MG TDSY TD SCH (19:30)
[2021-09-17] MEDS: PROMETHAZINE HCL 6.25 MG in SODIUM CHLORIDE 0.9% 50 ML IV ONE ×2 (19:33→22:04)
--- NOTE | 2021-09-17 19:37 | Operative Report ---
PG Post Operative Report Pre & Post Diagnosis Operation Date: 09/17/21 12:05 Pre-Op Diagnosis: Cholelithiasis; acute cholecystitis Post-Op Diagnosis: Cholelithiasis;acute cholecystitis I identified the patient and participated in the time-out.: Yes Procedure Operation Date: 09/17/21 12:05 Actual Procedures p Laparoscopic Cholecystectomy - Yunior White DO Surgeon Yunior White DO Biodiesel Product Manager n/a Estimated Blood Loss 10 Findings Consistent with Post-Op Diagnosis Specimens gallbladder Description of Procedure After informed consent was obtained the patient was taken to the operating room and placed in the supine position. After successful intubation the abdomen was sterilely prepped and draped in usual fashion. A periumbilical incision was made with an 11 blade scalpel and carried down through the soft tissue using electrocautery. The anterior rectus fascia was opened using electrocautery and 2 #0 Vicryl stay sutures were placed. The peritoneum was elevated with hemostats and incised under direct vision using Metzenbaum scissors. A finger sweep was performed and a 12 mm Wright trocar was placed. The abdomen was insufflated to 20 mmHg. The laparoscope was inserted and the abdomen was examined in 360. No gross abnormalities were identified. A subxiphoid 5 mm port and 2 right upper quadrant 5 mm ports were placed under direct vision. The patient was placed in a reverse Trendelenburg position and slightly airplaned to the left. The gallbladder was acutely inflamed. I used a gallbladder needle to partially drain it so that I could grasp it more easily. The gallbladder was grasped and elevated superiorly and laterally. There was a small amount of bile spillage during this process. I immediately suctioned and irrigated it until all irrigant was clear. A [place] dissector was used to take down adhesions around the neck of the gallbladder. The cystic duct was identified and ske letonized. It was clipped twice proximally and once distally and transected using a laparoscopic scissor. In similar fashion the cystic artery was identified and skeletonized clipped and divided. The gallbladder was removed from the gallbladder fossa with electrocautery. There was a small posterior branch that I clipped as well. It was placed into an Endo Catch bag. Thorough irrigation was performed. At the end of the procedure there was adequate hemostasis and no evidence of any bile leaks. A final look around the abdomen showed no other abnormalities. The gallbladder and trochars were all removed and the abdomen was desufflated. The fascia of the camera port was closed using 0 Vicryl in a [id number] fashion. All the wounds were irrigated and closed using 4-0 Monocryl. Marcaine was injected around them for postoperative analgesia and skin glue used as a dressing. The patient was awaken extubated and transferred to recovery in stable condition. I attest to the content of the Intraoperative Record and any orders documented therein. Any exceptions are noted below.
[2021-09-17] MEDS ORDERED: METOCLOPRAMIDE HCL INJ 5 MG/ML 2 ML VIAL IV STA (19:50)
[2021-09-17] MEDS ORDERED: METOCLOPRAMIDE HCL INJ 5 MG/ML 2 ML VIAL ONE (19:51)
[2021-09-17] MEDS ORDERED: diphenhydrAMINE 50 MG/ML VIAL ONE (19:58)
--- NOTE | 2021-09-17 20:10 | Anesthesiology Progress Note ---
Date of Service September 17, 2021 Anesthesia Post Procedure Vital Signs Vital Signs: Temp Pulse Pulse Pulse Resp BP BP 09/17/21 20:05 98.8 F 78 20 182/93 H 09/17/21 19:55 67 21 147/86 H 09/17/21 19:45 70 18 174/91 H 09/17/21 19:35 77 20 180/92 H 09/17/21 19:25 79 18 166/87 H 09/17/21 19:15 83 18 176/99 H 09/17/21 19:05 72 21 150/89 H 09/17/21 18:58 99.1 F 73 26 H 116/72 09/17/21 17:16 98.6 F 92 H 18 154/87 H 09/17/21 16:00 98.8 F 96 H 19 153/89 H 09/17/21 15:27 98.8 F 96 H 19 153/89 H 09/17/21 14:00 82 18 09/17/21 08:53 98.6 F 83 18 135/95 09/17/21 06:00 77 20 164/94 H 09/17/21 03:41 98.2 F 78 16 171/102 H Pulse Ox 09/17/21 20:05 94 09/17/21 19:55 96 09/17/21 19:45 96 09/17/21 19:35 99 09/17/21 19:25 98 09/17/21 19:15 99 09/17/21 19:05 95 09/17/21 18:58 96 09/17/21 17:16 97 09/17/21 16:00 97 09/17/21 15:27 97 09/17/21 14:00 98 09/17/21 08:53 97 09/17/21 06:00 97 09/17/21 03:41 97 Pain Intensity Chest: Pain Intensity: 5 Abdomen: Pain Intensity: 4 Transfer of Care Handoff Completed per policy Notes Mental Status: alert / awake / arousable and participated in evaluation Patient Amnestic to Procedure: Yes Nausea / Vomiting: adequately controlled Pain: adequately controlled Airway Patency, RR, SpO2: stable & adequate BP & HR: stable & adequate Hydration State: stable & adequate Anesthetic Complications: no major complications apparent and Pt Satisfied with anesthetic care
[2021-09-17] MEDS ORDERED: MoRPHine SULFATE 4 MG/ML 1 ML CARP\\VIAL IV PRN (20:55)
[2021-09-17] MEDS ORDERED: ACETAMINOPHEN 1,000 MG/100 ML VIAL IV PRN (20:55)
[2021-09-17] MEDS ORDERED: oxyCODONE HCL IR 5 MG TAB (IMMEDIATE RELEASE) PO PRN (20:55)
[2021-09-17] MEDS ORDERED: GABAPENTIN 300 MG CAP PO SCH (21:00)
[2021-09-17] MEDS: PIPERACILLIN/TAZOBACTAM 4.5 GM in DEXTROSE 5% 100 ML IV SCH (22:24)
[2021-09-17] MEDS: PANTOprazole 40 MG in SYRINGE 0 ML IV SCH (23:39)
[2021-09-18] MEDS: PIPERACILLIN/TAZOBACTAM 4.5 GM in DEXTROSE 5% 100 ML IV SCH ×2 (06:10→15:05)
[2021-09-18] MEDS: NSS + 20MEQ KCL 20 MEQ/1,000 ML BAG IV SCH (06:11)
--- NOTE | 2021-09-18 06:15 | Electrocardiogram Report ---
Test Reason : Blood Pressure : / mmHG Vent. Rate : 070 BPM Atrial Rate : 070 BPM P-R Int : 156 ms QRS Dur : 108 ms QT Int : 436 ms P-R-T Axes : 067 020 030 degrees QTc Int : 470 ms Poor data quality, interpretation may be adversely affected Normal sinus rhythm Normal ECG No previous ECGs available Confirmed by Cruz Ball ([id number]) on 09/18/2021 6:15:39 AM Referred By: REFERRED SELF Confirmed By:Cruz Ball
[2021-09-18 07:54] LABS: Basophils # (auto) 0.01 K/uL (0-0.2); Basophils % (auto) 0.1 %; Hematocrit (blood only) 34.3 % (37-47); Hemoglobin 11.3 g/dL (12.0-16.0); Immature Granulocytes # (auto) 0.02 K/uL (0.00-0.02); Immature Granulocytes % (auto) 0.2 %; Lymphocytes # (auto) 1.02 K/uL (1.2-3.4); Lymphocytes % (auto) 9.4 %; Mean Corpuscular Hgb Conc 32.9 g/dL (32-36); Monocytes # (auto) 0.38 K/uL (0.11-0.59); Monocytes % (auto) 3.5 %; Neutrophils # (auto) 9.45 K/uL (1.4-6.5); Neutrophils % (auto) 86.8 %; Platelet Count 342 K/uL (130-400); RDW Coefficient of Variation 15.2 % (11.5-14.5); RDW Standard Deviation 44.4 fL (36.4-46.3); Red Blood Count 4.34 M/uL (4.2-5.4); White Blood Count 10.88 K/uL (4.8-10.8)
[2021-09-18 08:13] LABS: Albumin Globulin Ratio 1.5 (0.9-2); BUN Creatinine Ratio 15.2 (10-20); Bilirubin,Total 0.5 mg/dl (0.2-1.0); Calcium 9.2 mg/dl (8.5-10.1); Creatinine Clr Calc Pharmacy 156.2 ml/min; Est GFR (African American) 123.6 ml/min; Est GFR (Non-African American) 106.7 ml/min; Globulin 2.6 gm/dl (2.5-4.0); Magnesium 2.1 mg/dl (1.7-2.4); Potassium 3.6 mmol/L (3.5-5.1); Total Protein 6.6 gm/dl (6.0-8.3)
[2021-09-18] MEDS: CHECK SCOPOLAMINE PATCH PLACEMENT SCH ×2 (08:20)
[2021-09-18] MEDS: ESCITALOPRAM OXALATE 20 MG TAB PO SCH (08:21)
[2021-09-18] MEDS: LABETALOL HCL 200 MG TAB PO SCH (08:21)
[2021-09-18] MEDS: LOSARTAN POTASSIUM 50 MG TAB PO SCH (08:21)
[2021-09-18] MEDS: PANTOprazole 40 MG in SYRINGE 0 ML IV SCH (08:22)
[2021-09-18] MEDS: amLODIPine BESYLATE 5 MG TAB PO SCH (08:22)
[2021-09-18 08:48] LABS: Estimated Average Glucose 137 mg/dl; Hemoglobin A1C 6.4 % (4.5-5.6)
--- NOTE | 2021-09-18 10:05 | Surgery Progress Note ---
Date of Service September 18, 2021 Assessment & Plan (1) Cholecystitis: Plan: POD#1 lap quan WBC 10, Tb: 0.5 Patient feeling well Will advance diet as tolerates Pain controlled on prn regimen Okay for discharge from our standpoint if tolerates diet and pain remains cont rolled Dispo instructions reviewed...f/u with Dr. White in 2 weeks Admission and Anticipated Discharge Date Admission Date: September 17, 2021 Subjective Patient feeling much better than when she came in. Does have some nonspecific belly pain to the left side of abdomen that is tolerable. Mild nausea this AM that has passed. Is hungry for more of a diet. Physical Exam Physical Exam: awake/alert, NAD Gastrointestinal (Abdomen): Inspection/Auscultation: + abdominal surgical incision (some scant bloody drainage on dressings; otherwise intact and well); abdomen not distended Percussion/Palpation: abdomen soft Results & Data ([facility]) Vital Signs (Past 12 Hours) Vital Signs Temp Pulse Pulse Resp BP Pulse Ox 09/18/21 09:46 76 09/18/21 07:31 36.8 C 83 18 145/73 H 98 09/18/21 05:05 36.8 C 80 18 134/78 94 09/18/21 00:58 36.9 C 83 18 110/68 95 09/17/21 23:21 37.1 C 79 19 142/79 H 92 09/17/21 22:15 86 PG Care Time/CCT Total # of Minutes Spent Total Time Spent with Patient: Total time spent is greater than 50% in coordination of care (as documented) at patient's floor/unit and/or counseling patient: Coding Level of Care Code None Diagnoses Cholecystitis K81.9
--- NOTE | 2021-09-18 10:33 | Hospitalist Progress Note ---
Date of Service September 18, 2021 Assessment & Plan (1) RUQ pain: Plan: With evidence of cholelithiasis on U/S, recent low-grade fevers HIDA scan revealed cystic duct obstruction/acute cholecystitis Patient was started on antibiotics S/p lap cholecystectomy by surgery yesterday POD #1 Patient tolerated clears this morning Labs reviewed Advance diet. If well tolerated, may be discharged home later today to follow up with surgeon (2) Cholelithiasis: (3) Essential hypertension: Plan: Stable Continue current antihypertensives (4) Prediabetes: Plan: A1c 6.4 Needs life style modification (weight loss, diet management and exercise) (5) Obstructive sleep apnea: Plan: Continue using CPAP (6) CHELLY (generalized anxiety disorder): Plan: Continue Lexapro Admission and Anticipated Discharge Date Admission Date: September 17, 2021 Subjective Patient seen and examined Reports mild abdominal discomfort mostly in epigastric area Reported RUQ pain is resolved Denied any fevers, chills, nausea, vomiting today Denied any chest pain, shortness of breath, cough Denied dysuria, frequency, urgency Physical Exam Constitutional: + well hydrated and + obese; no acute distress Eyes: PERRL, conjunctivae normal, anicteric sclerae ENMT: external ear and nose normal, oropharynx normal Respiratory: normal respiratory effort, lungs clear to auscultation Cardiovascular: Rate/Rhythm: regular rate and regular rhythm S1 S2 Gastrointestinal (Abdomen): Clean dressing over surgical site, soft, nontender, normal bowel sounds Musculoskeletal: no cyanosis or clubbing, extremities motor strength 5/5 Neurologic: PERRL, EOMI, accommodation nl, no face palsy, no dysarthria Psychiatric: A+Ox3, euthymic affect Results & Data Results & Data ([facility]) Vital Signs (Past 12 Hours) Vital Signs Temp Pulse Pulse Resp BP Pulse Ox 09/18/21 09:46 76 09/18/21 07:31 36.8 C 83 18 145/73 H 98 09/18/21 05:05 36.8 C 80 18 134/78 94 09/18/21 00:58 36.9 C 83 18 110/68 95 09/17/21 23:21 37.1 C 79 19 142/79 H 92 Laboratory Results Abnormal lab results 09/18/21 09/18/21 09/18/21 Range/Units 07:20 07:20 07:20 WBC 10.88 H (4.8-10.8) K/uL Hgb 11.3 L (12.0-16.0) g/dL Hct 34.3 L (37-47) % MCV 79.0 L (80-100) fL RDW Coeff of Dylan 15.2 H (11.5-14.5) % Neut # (Auto) 9.45 H (1.4-6.5) K/uL Lymph # (Auto) 1.02 L (1.2-3.4) K/uL Glucose 130 H (70-99(Fasting)) mg/dl Hemoglobin A1c 6.4 H (4.5-5.6) % AST 62 H (13-39) U/L ALT 78 H (7-52) U/L
--- NOTE | 2021-09-18 14:02 | Discharge Summary ---
Date of Service September 18, 2021 Admission HPI Per Admitting Provider This is a 46 y/o female with a PMH of HTN, SAMIRA on CPAP, depression/anxiety, and prediabetes and LMP of 3 wks ago who presented to the ED early this morning with upper abdominal pain. She reports that everyone at home has been sick with a viral URI for the past week (COVID tests have been negative). She developed low-grade fevers, chills, and some myalgias 2-3 days ago with a Tmax of 101, but never developed the cough, congestion that the rest of her family had. Two nights ago, she developed extreme fatigue and went to bed around 8pm and slept through until the next day (yesterday) at 4 pm. She felt a little better when she woke up yesterday afternoon so she ate egg drop soup and pie last evening. [place] fine when she went to bed around 9:30 pm. At 1:30 am today, she was woken up by severe squeezing upper abdominal pain that felt like a band around her upper abdomen, under her breasts, around to her back. She also had sharp pain in her right side with taking deep breaths. She had associated nausea but no vomiting. She tried taking Tums and Tylenol without relief so she came to the ED for evaluation around 3:30 am. No jaundice, dark urine, diarrhea. She received a GI cocktail in the ED with minimal response but did have some relief with famotidine and ketorolac. Currently, the pain seems to have localized to the RUQ - still squeezing with intermittent sharp pains. Nausea improved at present after anti-emetic. She has a hx of gastric ulcer in for which she was empirically treated with improvement. She denies prior EGD. Her current pain is different than the pain with the PUD. She denies melena or hematochezia. She has occasional heartburn at baseline for which she uses prn Tums with relief. She has a history of HTN that has been difficult to control and for which she follows with nephrology - monitors her BP at home and it is usually 130-140/90. Echo in 2019 due to a question of heart murmur on exam - normal LV chamber size with mild concentric LVH, LVEF = 60%, normal diastolic dysfunction, no significant valvular pathology. Admission Exam Per Admitting Provider Constitutional: well developed and well nourished; no acute distress Eyes: + anicteric sclerae Neck: trachea midline Respiratory: no respiratory distress and no labored breathing Auscultation: lungs clear to auscultation bilaterally; no rales, no rhonchi and no wheezes Cardiovascular: Rate/Rhythm: regular rate and regular rhythm Vessels: dorsalis pedis pulses present and radial pulses present Gastrointestinal (Abdomen): Inspection/Auscultation: normal bowel sounds; abdomen not distended Percussion/Palpation: + abdomen tender (in RUQ, o/w NT) and abdomen soft Musculoskeletal: Head/Neck/Chest: normocephalic, head atraumatic and neck supple Skin: no jaundice Neurologic: moves all extremities; no focal motor deficits Psychiatric: A+Ox3, euthymic affect Principal Diagnosis Acute cholecystitis Status post laparoscopic cholecystectomy Prediabetes Discharge Exam Constitutional + well hydrated and + obese; no acute distress Eyes PERRL, conjunctivae normal, anicteric sclerae ENMT external ear and nose normal, oropharynx normal Respiratory normal respiratory effort, lungs clear to auscultation Cardiovascular Rate/Rhythm: regular rate and regular rhythm S1 S2 Gastrointestinal (Abdomen) Clean dressing over surgical site, soft, nontender, normal bowel sounds Musculoskeletal no cyanosis or clubbing, extremities motor strength 5/5 Neurologic PERRL, EOMI, accommodation nl, no face palsy, no dysarthria Psychiatric A+Ox3, euthymic affect Discharge Data Allergies Allergy/AdvReac Type Severity Reaction Status Date / Time No Known Allergies Allergy Mild Unverified 09/17/21 07:27 Consultations 09/17/21 06:55 ED Decision to Admit Stat 09/17/21 15:27 Consult General Surgery Routine Procedures Performed Operation Date: 09/17/21 12:05 Actual Procedures p Laparoscopic Cholecystectomy - Yunior White DO Ordered Studies 09/17/21 04:21 US abdomen limited Urgent Hepatic echogenicity is increased. No hepatic lesions are identified although sensitivity is diminished on this exam. There is no biliary ductal dilatation. Common bile duct measures 4 mm in caliber. The gallbladder is distended. There are multiple gallstones within the gallbladder. No gallbladder wall thickening. Sonographic Bernard sign could not be assessed. No pericholecystic fluid. Pancreas is largely obscured by overlying bowel gas. There is no right hydronephrosis. IMPRESSION: 1. Cholelithiasis. Moderate gallbladder distention. Unable to assess for sonographic Bernard sign. Acute cholecystitis cannot be excluded. If indicated, a nuclear medicine hepatobiliary scan could be obtained. 2. No biliary ductal dilatation. 3. Hepatic steatosis. NUCLEAR MEDICINE HEPATOBILIARY SCAN HISTORY: RUQ pain? cholecystitis COMPARISON: Abdominal ultrasound 09/17/2021. TECHNIQUE: Immediately following the intravenous administration of 5.0 mCi Tc- 99m Choletec, dynamic anterior abdominal imaging was performed. FINDINGS: Uniform hepatic tracer accumulation is shown. Prompt intrahepatic biliary excretion is seen. The common bile duct and small bowel are visualized at 15 minutes. The gallbladder is not identified during the initial 60 minutes of imaging. Therefore, 2 mg of intravenous morphine was administered and an additional 30 minutes was obtained. The gallbladder was not identified during the additional 30 minutes. Therefore, this is consistent with cystic duct obstruction/acute cholecystitis. IMPRESSION: Above findings consistent with cystic duct obstruction/acute cholecystitis. Hospital Course (1) Acute cholecystitis: (2) Cholelithiasis: (3) RUQ pain: Patient presented with upper abd pain, low grade fever, chills and myalgia Abd USS showed cholelithiasis and moderate gall bladder distention HIDA scan revealed cystic duct obstruction/acute cholecystitis Patient was started on antibiotics for Acute calculous cholecystitis S/p lap cholecystectomy by surgery yesterday POD #1 Patient symptoms resolved Tolerating diet well Patient discharged home (4) Essential hypertension: Stable Continue current antihypertensives (5) Prediabetes: A1c 6.4 Educated on lifestyle modification (weight loss, diet management and exercise) (6) Obstructive sleep apnea: Continue using CPAP (7) CHELLY (generalized anxiety disorder): Continue Lexapro Total Time Total Time Spent Total Time Spent (In Minutes): 45 Total Time Includes: Examination of the Patient, Discharge Planning, Medication Reconciliation and Communication With Other Providers Discharge Plan Discharge Items Patient Disposition: Home - Self-Care Reason For Visit: ABDOMINAL PAIN Discharge Diagnosis: Acute cholecystitis Status post laparoscopic cholecystectomy Prediabetes Activity: As commented below Lifting: No more than 10 pounds Bathing Comment: ok to shower Driving/Machine Use: Resume 3 days after discharge Non-emergency contact: Surgeon Call non-emergency contact if: you have any medication questions, your pain is worsening, you have a fever, your temperature is above 101.5 and your wound has increased redness Follow-up/Referrals: Yunior White, [Surgeon] - (Please call to maker an appt in approx 2 weeks) Mariama Scott MD [Primary Care Provider] - (Date & Time 09/24/2021 11:00 AM Provider Laura Reyes MD Department General Internal Medicine [facility] ) Diet: Carb Consistent or DM2 Addtl Attending Provider Instructions: Ms More. You came to the hospital with abdominal pain. You were evaluated and found to have acute cholecystitis (gall bladder infection/inflammation). Your gall bladder was removed. Your hemoglobin A1c was also abnormal at 6.4. Hence you have prediabetes. It is very important that you manage this with diet, exercise and weight loss to avoid progression to diabetes mellitus. Please ensure follow up with your Primary Doctor and surgeon. It was a pleasure taking care of you. Pending Studies at Discharge: No Stand-Alone Forms: My [facility], Smoking Cessation Medications and DC Order Prescriptions: New hydrocodone-acetaminophen 5-325 mg tablet 1 - 2 tab PO .Q4-6h MDD 6 tabs PRN (Reason: pain, initial therapy) Qty: 15 RF: 0 Continued gabapentin 300 mg Capsule 300 mg PO HS Qty: 0 RF: 0 labetalol 200 mg tablet 200 mg PO BID RF: 0 chlorthalidone 25 mg tablet 25 mg PO QAM RF: 0 amlodipine 10 mg tablet 10 mg PO QAM RF: 0 losartan 100 mg tablet 100 mg PO QAM RF: 0 escitalopram oxalate [Lexapro] 20 mg Tablet 20 mg PO DAILY RF: 0 Discharge Orders: Discharge Order (Routine); Ordered 09/18/21 Ordered By: Erika Mcdonald/Other Patient Handouts: Prediabetes, 5 Steps for Eating Healthier Admission Data Admit Date/Time: 09/17/21 07:50 Attending Provider: Erika Trejo I. Admit Provider: Yahir Mccloud Primary Care Provider: Mariama Scott Other Providers: Marcelo San ; Polol Pearce ; Eze Aguilar ; Malu Chaudhary ; Lou Cueto ; Trell Gardner ; Taz Penny ; Alda Tomlinson ; Mickie Guadarrama ; Aime Marsh Jr ; Walt Arredondo ; Yunior Chavez ; Elenoora Sanders ; Yahir Mccloud Other Interventions: Discharge Summary Assessment (RN) Last Done: 09/18/21 14:41
== END 2021-09-18 15:32 | disposition home or self-care (01) | DRG 418 ==
LOC: ED 03:40 → INTOOBSV 07:50 → 2N 07:50 → SUATTDRO 07:50 → 2N 14:56

== ENCOUNTER 2024-09-27 05:53 | Observation (INO) ==
--- NOTE | 2024-09-19 14:02 | Anesthesiology Consultation ---
Date of Service September 19, 2024 Assessment & Plan (1) Encounter for pre-operative examination: Chart Review Chart Review: Acceptable Risk for Surgery and Patient NOT seen in Pre Admission Testing Consults Requested none History Surgery Operation Date: 09/27/24 07:30 Proposed Procedures p Panniculectomy, - Lazara Nguyen MD s With Add-on [id number] Abdominoplasty - Lazara Nguyen MD s Brachioplasty - Lazara Nguyen MD Height/Weight Height: 5 ft 7 in Weight: 84.368 kg Allergies Allergy/AdvReac Type Severity Reaction Status Date / Time No Known Allergies Allergy Mild Verified 09/15/24 12:44 Medications Home Medications Medication Instructions Recorded Confirmed Last Taken gabapentin 300 mg capsule 300 mg PO HS PRN restless leg #0 12/11/11 09/15/24 09/16/21 caps labetalol 200 mg tablet 200 mg PO BID 09/17/21 09/15/24 09/16/21 losartan 100 mg tablet 100 mg PO QAM 09/17/21 09/15/24 09/16/21 calcium 500 mg (as citrate)-vit D3 1 tab PO DAILY 03/03/24 09/15/24 Unknown 12.5 mcg (500 unit) chewable tablet escitalopram oxalate 20 mg tablet 20 mg PO QAM 03/03/24 09/15/24 Unknown (Lexapro) hydrochlorothiazide 12.5 mg tablet 12.5 mg PO QAM 03/03/24 09/15/24 Unknown zinc gluconate 100 mg tablet 100 mg PO DAILY 03/03/24 09/15/24 Unknown Past Medical History Medical History History of postoperative nausea and vomiting Cardiac murmur stable per pt, checked with [facility] CHELLY (generalized anxiety disorder) Prediabetes has improved since weight loss sx, no meds HTN (hypertension) SAMIRA (obstructive sleep apnea) cpap Obesity RLS (restless legs syndrome) Past Family History Family History Father Heart disease CAD s/p multiple stents Mother Heart disease heart murmur now s/p valve replacement Brother Heart disease MIs in his 50s, heart murmur Denies family history of Gallbladder disease Past Surgical History Surgical History Hx of breast biopsy benign History of surgery on left wrist Hx of hernia repair [place] teeth extracted History of section x1 Hx of gastric bypass 2022 Hx laparoscopic cholecystectomy (09/17/21) Laparoscopic Cholecystectomy - Yunior White, DO 09/17/2021 History of elbow surgery left 1988 Social History Smoking Status: Never smoker Do You Dip or Chew Tobacco: No Hx Alcohol Use: Yes Alcohol type: beer and wine alcohol intake frequency: a few times a month Hx Substance Use: No substance use type: does not use Testing Laboratory Results Laboratory Tests 09/16/24 09:04 WBC 5.22 Hgb 11.6 L Hct 36.2 L Plt Count 258 PT 10.9 INR 1.0 Sodium 140 Potassium 3.3 L Chloride 104 Carbon Dioxide 32 BUN 15 Creatinine 0.54 L Glucose 96 Patient's potassium was 3.3 in 2021. Electrocardiogram Date: 09/17/21 DICTATED BY: Cruz Ball MD Test Reason : Blood Pressure : / mmHG Vent. Rate : 070 BPM Atrial Rate : 070 BPM P-R Int : 156 ms QRS Dur : 108 ms QT Int : 436 ms P-R-T Axes : 067 020 030 degrees QTc Int : 470 ms Poor data quality, interpretation may be adversely affected Normal sinus rhythm Normal ECG No previous ECGs available Confirmed by Cruz Ball ([id number]) on 09/18/2021 6:15:39 AM Echocardiogram Date: 10/05/18 No sig valvular pathology EF 60%
[2024-09-27] MEDS: LR 15ML/HR IV SCH (06:25)
[2024-09-27] MEDS ORDERED: ePHEDrine sulfate 50 MG/ML AMP IV PRN (06:37)
[2024-09-27] MEDS ORDERED: HYDROmorphone INJ 2 MG/ML SYR/VIAL IV PRN (06:37)
[2024-09-27] MEDS ORDERED: HYDROmorphone INJ 1 MG/ML SYRINGE IV PRN (06:37)
[2024-09-27] MEDS ORDERED: fentaNYL citrate PF 100 MCG/2 ML VIAL IV PRN (06:37)
[2024-09-27] MEDS ORDERED: ONDANSETRON INJ 2 MG/ML 2 ML VIAL IV PRN ×2 (06:37→18:07)
[2024-09-27] MEDS ORDERED: ATROPINE SULFATE 0.1 MG/ML 10ML SYR IV PRN ×2 (06:37→17:00)
[2024-09-27] MEDS ORDERED: DROPERIDOL 5 MG/2 ML VIAL IV PRN ×2 (06:37→17:00)
[2024-09-27] MEDS ORDERED: ACETAMINOPHEN 1000 MG/100 ML IV IV ONE (06:47)
[2024-09-27] MEDS ORDERED: PROPOFOL IV EMULSION 10 MG/ML 100 ML VIAL IV ONE (06:47)
--- NOTE | 2024-09-27 06:49 | History & Physical Bridge Note ---
Date of Service September 27, 2024 History & Physical Bridge Note I have examined the patient, reviewed the History & Physical and in the interval since the performance of the History & Physical I have noted the following changes of clinical significance: had Nexplanon removed yesterday, site clean, no ecchymosis or signs of infection.
[2024-09-27] MEDS ORDERED: ONDANSETRON INJ 2 MG/ML 2 ML VIAL ONE ×2 (06:54→16:22)
[2024-09-27] MEDS ORDERED: ROCURONIUM BROMIDE 10 MG/ML 5 ML VIAL IV ONE ×2 (06:54→08:08)
[2024-09-27] MEDS ORDERED: PROPOFOL IV EMULSION 10 MG/ML 20 ML VIAL IV ONE (06:54)
[2024-09-27] MEDS ORDERED: LIDOCAINE 2% 2 ML VIAL/AMP(20MG/ML) INFIL ONE (06:54)
[2024-09-27] MEDS ORDERED: DEXAMETHASONE SOD INJ 4 MG/ML VIAL ONE (06:54)
[2024-09-27] MEDS ORDERED: KETAMINE HCL 10MG/ML SYR ONE ×2 (07:01→12:15)
[2024-09-27] MEDS ORDERED: fentaNYL citrate PF 100 MCG/2 ML VIAL ONE (07:01)
[2024-09-27] MEDS ORDERED: MIDAZOLAM HCL 1 MG/ML 2ML VIAL ONE (07:01)
[2024-09-27] MEDS ORDERED: DexMEDEtomidine HCL IV 100 MCG/ML VIAL IV ONE (07:03)
[2024-09-27] MEDS: SCOPOLAMINE 1 MG/72 HR TDSY PATCH TD ONE (07:10)
[2024-09-27] MEDS: APREPITANT 40 MG CAP PO STA (07:11)
[2024-09-27] MEDS: ceFAZolin 2000MG 2,000 MG/15 ML SYR IV SCH ×2 (07:28→19:38)
[2024-09-27] MEDS: TRANEXAMIC ACID 1,000 MG **IV Intra-op IV SCH (07:54)
[2024-09-27] MEDS ORDERED: GLYCOPYRROLATE 0.2 MG/ML VIAL ONE ×2 (08:36→08:42)
[2024-09-27] MEDS ORDERED: HYDROmorphone INJ 2 MG/ML SYR/VIAL ONE (08:38)
[2024-09-27] MEDS ORDERED: LABETALOL HCL IV 5 MG/ML 20ML IV ONE (09:17)
--- OUTSIDE RECORDS SUMMARY | 2024-09-27 10:25 | External Medical Summary | Summary of Care ---
Author Name Unknown Organization [facility] Address [address] [place] [address] Phone [phone] Care Team Providers Care Director Of Online Education Name Role Phone Mariama Scott MD Primary Care Provider + Reason for Visit * Reason Comments Assembler Seat Return Nexplanon removal Encounter Details Date Type Department Care Team (Late st Contact Info) Description 09/26/2024 11:00 AM EDT Office Visit Gynecology/Obstetric Felice ackerman [address] [place] [address] Kaila Durand PA-C [address] [place] [address] Encounter for Nexplanon removal* Allergies No known active allergiesdocumented as of this encounter (statuses as of 09/26/2024) Medications CPAP every night at bedtime. Active Labetalol HCl 200 MG Oral Tablet (Normodyne) TAKE ONE TABLET BY MOUTH EVERY MORNING AND BEFORE BEDTIME 180 Tablet 3 4 Active Multi For Her Oral Tablet Take 1 Tablet by mouth in the morning. Active Citracal Maximum Plus Oral Tablet Take by mouth. Act willian Losartan Potassium 100 MG Oral Tablet (Cozaar) TAKE ONE TABLET BY MOUTH EVERY MORNING 90 Tablet 3 4 Active Escitalopram Oxalate 20 MG Oral Tablet (Lexapro) TAKE ONE TABLET BY MOUTH EVERY MORNING 90 Tablet 3 4 Active Zinc Gluconate 100 MG Oral Tablet Take 1 Tablet by mouth in the morning. 04/11/24 Pt takes 3 tablets 1200 mg total . 4 Active hydroCHLOROthia zide 12.5 MG Oral Tablet TAKE ONE TABLET BY MOUTH EVERY MORNING 30 Tablet 5 4 Active Enoxaparin Sodium 40 MG/0.4ML Injection Solution Prefilled Syringe (Lovenox) INJECT 0.4ML UNDER THE SKIN DAILY FOR 7 DAYS ADMINISTER INTO UPPER THIGH AND NOT ABDOMEN ONCE DISCHARGED TO HOME FROM [facility]) 5 Active oxyCODONE-Aceta minophen 5-325 MG Oral Tablet (Percocet) TAKE ONE TABLET BY MOUTH EVERY 4 HOURS NEEDED FOR PAIN FOR 3 DAYS 5 Active Hospital, Clinic, or Other Facility Administered Medication Ordered Dose Route Frequency Start Date End Date Status Vitamin B-12 (Cyanocobalamin) inj 1,000 mcgIndications:Intestinal postoperative nonabsorption 1000 mcg IM [id number] 06/07/2024 05/09/20 25 Active lidocaine 2 % inj 40 mgIndications:Encounter for Nexplanon removal 40 mg SC ONCE 09/26/2024 09/26/2024 Ended documented as of this encounter (statuses as of 09/26/2024) Active Problems Problem Noted Date Diagnosed Date 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 Pre-operative examination 01/09/2023 COBB RESEARCH OTHER*[id number] 07/28/2022 Body mass index (BMI) of 40.0 to 44.9 in adult 0 07/14/2022 Overview: Per Obesity protocol - Per Obesity protocol - Incisional hernia 05/08/2022 Current mild episode of jesse r depressive disorder without prior episode 07/18/2019 CHELLY (generalized anxiety disorder) 07/18/2019 SAMIRA (obstructive sleep apnea) 12/14/2018 Snoring 10/05/2018 Insomnia 10/05/2018 HTN, goal below 140/80 10/05/2018 RLS (restless legs syndrome) 10/05/2018 FAMILY HX-CONDITION NEC 07/28/2002 documented as of this encounter (statuses as of 09/26/2024) Resolved Problems Problem Noted Date Diagnosed Date Resolved Date Body mass index (BMI) of 45. 0 to 49.9 in adult 08/16/2019 07/17/2022 Overview: Per Obesity protocol - Body mass index (BMI) of 40. 0 to 44.9 in adult 08/16/2018 08/17/2019 Overview: Per Obesity protocol #1 Prediabetes 08/16/2018 01/15/2023 Overview: Per Prediabetes protocol #1 MILD-NOS PREECLAMP-ANTEP 12/09/200206/2024 Normal , first 06/07/200209/03 documented as of this encounter (statuses as of 09/26/2024) Immunizations Name Administration Dates Next Due COVID-19 mRNA, LNP-s, No Pre serve, 2-Dose Series (Pfizer) 04/09/2021,07/31/2020,07/10/2020 COVID-19, MRNA-LNP, PF, 30 M CG/0.3 mL, 12 YRS AND ABOVE, IM (PFIZER-Comirnaty) 05/19/2024,05/08/2023 Pneumococcal Conjugate Vacci ne, 20-valent ([id number]) 03/15/2024 Seasonal Influenza, MDCK, Tr ivalent, PF, (Flucelvax) 05/18/2024,04/15/2023 Seasonal Influenza, PF, 6 M & above, IM , (FluLaval or Fluzone) 04/05/2019,04/19/2018 Seasonal Influenza, Quadriva lent, No Preserve, IM 04/16/2022,05/01/2020 TDAP (age 10 and older)(Boostrix) 07/29/2018 documented as of this encounter Social History Tobacco Use Types Packs/Day Years Used Date Smoking Tobacco: Never Smokeless Tobacco: Never Alcohol Use Standard Drinks/Week Comments Not Currently 0 (1 standard drink = 0.6 oz pur e alcohol) Recreational PHQ-2 Answer Date Recorded PHQ-2 Score 0 09/17/2018 Hunger Vital Sign Answer Date Recorded Within the past 12 months, y ou worried that your food would run out before you got the money to buy more. Never true 09/26/19 25 Within the past 12 months, t he food you bought just didn't last and you didn't have money to get more. Never true 09/25/2024 Childcare Answer Date Recorded Do you feel overwhelmed with taking care of a child, family member or friend? No 09/25/2024 Does your family need help f inding childcare? (Household - for ages 0-17 years) Not on file 09/25/2024 Clothing Answer Date Recorded Have you been unable to get clothing when it was really needed? No 09/25/2024 Is your family able to get c lothes or diapers when needed? (Household - for ages 0-17 years) Not on file 09/25/2024 Personal Safety Answer Date Recorded Do you feel unsafe or have concerns for your saf ety? No 09/25/2024 Do you have concerns for you r family's safety? (Household - for ages 0-17 years) Not on file 09/25/2024 Utilities Answer Date Recorded Do you have trouble paying y our heating, water, or electric bill? No 09/25/2024 Is your family able to pay t he heat, water, or electric bill? (Household - for ages 0-17 years) Not on file 09/25/2024 Does your family have access to good internet? (Household - for ages 0-17 years) Not on file 09/25/2024 Employment Status Answer Date Recorded Are you unemployed or without regular income? No 09/25/2024 Does the household have a re gular source of income? (Household - for ages 0-17 years) Not on file 09/25/2024 Social Connections Answer Date Recorded How often do you feel lonely or isolated from th ose around you? Never 09/25/2024 Financial Resource Strain Answer Date R ecorded Do you have any trouble payi ng for your medications, or do you think you might in the future? No 09/25/2024 Does your family have troubl e paying for medicine? (Household - for ages 0-17 years) Not on file 09/25/2024 Transportation Needs Answer Date Record ed Do you have trouble getting a ride to medical visits or work? (Adult - for ages 18 years and over) Not on file 09/25/2024 Does your family have a hard time getting a ride to doctors visits? (Household - for ages 0-17 years) Not on file 09/25/2024 Has lack of transportation k ept you from medical appointments, meetings, work, or from getting things needed for daily living? Check all that apply. No 09/25/2024 Do you (or your family) have trouble finding or paying for a ride (transportation)? (Household - for ages 0-17 years) Not on file 09/25/2024 Housing Stability Answer Date Recorded Do you currently live in a s helter or have no steady place to sleep at night? No 09/25/2024 Do you think you are at risk of becoming homeless? (Adult - for ages 18 years and over) Not on file 09/25/2024 Does your family worry about paying for your home or becoming homeless? (Household - for ages 0-17 years) Not on file 0 09/25/2024 Are you homeless or worried that you might be in the future? No 09/25/2024 Are you (or your family) bill eless or worried that you might be in the future? (Household - for ages 0-17 years) Not on file Food Insecurity Answer Date Recorded Do you need food for this week? No 09/07/2023 Are you able to get enough f ood for your family? (Household - for ages 0-17 years) Not on file 09/07/2023 Does your family need food t his week? (Household - for ages 0-17 years) Not on file 09/07/2023 Do you always have enough fo od for your family? (Household - for ages 0-17 years) Not on file 09/07/2023 Food Insecurity Answer Date Recorded Within the past 12 months, y ou worried that your food would run out before you got the money to buy more. Never true 09/26/19 25 Within the past 12 months, t he food you bought just didn't last and you didn't have money to get more. Never true 09/25/2024 Do you need food for this week? No 09/25/2024 Comments No Sex and Gender Information Value Date Recorded Sex Assigned at Female 11/04/2018 1:50 PM EDT Legal Sex Female 5:13 AM EST Gender Identity Female 11/04/2018 1:50 PM EDT Sexual Orientation Straight 11/04/2018 1: 50 PM EDT documented as of this encounter Last Filed Vital Signs Vital Sign Reading Time Taken Comments Blood Pressure 128/76 09/26/2024 11:22 AM EDT Pulse - - Temperature 36.7 °C (98.1 °F) 09/26/2024 11:22 AM E DT Respiratory Rate - - Oxygen Saturation - - Inhaled Oxygen Concentration - - Weight 87.7 kg (193 lb 6.4 oz) 09/26/2024 11:22 AM EDT Height - - Body Mass Index 33.2 03/04/2024 1:35 PM EDT documented in this encounter Functional Status * Are you deaf or do you have serious difficulty hearing? Answer Date of Assessment Author No 01/16/2023 3:27 PM EDT Genesis Ramirez RN * Are you blind or do you have serious difficulty seeing, even when wearing glasses? Answer Date of Assessment Author No 01/16/2023 3:27 PM EDT Genesis Ramirez RN * Do you have serious difficulty walking or climbing stairs? (5 years old or older) Answer Date of Assessment Author No 01/16/2023 3:27 PM EDT Genesis Ramirez RN * Do you have difficulty dressing or bathing? (5 years old or older) Answer Date of Assessment Author No 01/16/2023 3:27 PM EDT Genesis Ramirez RN * Because of a physical, mental, or emotional condition, do you have difficulty doing errands alone such as visiting a doctor’s office or shopping? (15 years old or older) Answer Date of Assessment Author No 01/16/2023 3:27 PM EDT Genesis Ramirez RN documented as of this encounter Mental Status * Because of a physical, mental, or emotional condition, do you have serious difficulty concentrating, remembering, or making decisions? (5 years old or older) Answer Entry Date Author No 01/16/2023 3:27 PM EDT Genesis Ramirez RN documented in this encounter Progress Notes * Kaila Durand PA-C - 09/26/2024 11:40 AM EDT Implant removal progress note Debo More [id number] Debo More 49 year old is here for removal of Nexplanon implant. She is having brachioplasty tomorrow with [facility] and was advised that nexplanon needed to be removed first. She declines alternative hormonal contraception at this time - planning to use abstinence/condoms. Date of procedure: 09/26/2024 Preop Dx: Desired removal of Nexplanon subdermal implant Post op Dx: same Procedure: Removal of Nexplanon Surgeon: Kaila Durand PA-C Anesthesia: 2ml of 2% Lidocaine as local to medial proximal left upper extremity Findings: normal Complications: none Disposition: Return as needed, PRN Procedure Details: Patient signed informed consent. A "time out" was initiated by Kaila Durand PA-C prior to procedure. The patient was identified by name and date of . The correct procedure, and correct site identified. Correct positioning (as applicable). There is availability of necessary equipment. Patient states she is not allergic to latex. The implant was palpated on the inner left upper arm. The area was cleansed with betadine and was injected with 2% Lidocaine for anesthesia. Sterile gloves and draping was applied. An 11 blade was used to make a small 1 cm incision at the entry site of the implant. The implant was grasped with forceps and easily removed. Steris strips were placed over the incision and a pressure dressing applied.She was instructed to leave her steri strips on but may take the pressure dressing off tomorrow. Nocomplications, patient tolerated the procedure well. Kaila Durand PA-C 09/26/2024 11:46 AM documented in this encounter Nursing Notes * Tamika Moreland CMA - 09/26/2024 11:21 AM EDT Chief Complaint Patient presents with Assembler Seat Return Nexplanon removal Pt here for Nexplanon removal. Brachioplasty scheduled for tomorrow documented in this encounter Plan of Treatment Upcoming Encounters Date Type Department Care Team (Sommer Contact Info) Description 01/17/2025 9:30 AM EDT Telemedicine General Surgery, [place] [address] [place] [address] Yunior Cobb PA-C [address] [place] [address] 03/07/2025 3:40 PM EDT [facility] [address] [place] [phone] Janna Philippe, [address] [place] [address] 03/21/2025 8:00 AM EDT Office Visit General Internal Medicine [facility] [address] [facility] [place] [address] Mariama Scott MD [address] [facility] [place] [address] Scheduled Orders Name Type Priority Associated Diagnoses Orde r Schedule REMOVE/INSERT DRUG IMPLANT Procedures Routine Encounter for Nexplanon removal Ordered: 09/26/2024 Health Maintenance Due Date Last Done Comments HIV Screening 1991 Hepatitis C Screening 1994 Hepatitis B Vaccine (1 of 3 - 19+ 3-dose series) 1995 Depression Monitoring 07/26/2020 07/26/2019 Colonoscopy 2021 Fecal Occult Blood Test 2021 Sigmoidoscopy 2021 Albumin/Creatinine Ratio 09/24/2024 09/24/2021 GFR 12/06/2024 12/07/2023, 06/06, 03/05/2023, Additional history exists Mammogram 04/06/2025 04/06/2024, 03/06, 10/08/2020, Additional history exists Pap Smear 09/08/2026 09/09/2023, 08/06, 01/23/2003, Additional history exists Diabetes Screening 12/06/2026 12/07/2023, 0 12/07/2023, 07/03/2023, Additional history exists Cologuard 03/02/2027 03/02/2024 Colorectal Cancer Screening 03/02/2027 DTap/Tdap Vaccines (2 - Td or Tdap) 07/29/2028 07/29/2018 Cervical Cancer Screening 09/08/2028 HPV/Co-Test 09/08/2028 09/09/2023 Lipid Panel 12/06/2028 12/07/2023, 06/06, 07/28/2022, Additional history exists Pneumococcal Vaccine: Pediatrics (0 to 5 Years) and At-Risk Patients (6 to 18 Years and 19+ Years) Completed 03/15/2024 Influenza Vaccine (FLU shot) Completed , 04/15/2023, 04/16/2022, Additional history exists COVID-19 Vaccine Completed 05/19/2024, 09/2022, 04/09/2021, Additional history exists HPV (Gardasil) Vaccine Aged Out No lo nger eligible based on patient's age to complete this topic MENINGOCOCCAL (MENACTRA/MENVEO) Aged Out No longer eligible based on patient's age to complete this topic Meningitis B Vaccine (Bexsero/Trumemba) Aged Out No longer eligible based on patient's age to complete this topic documented as of this encounter Medical Devices Implanted Type Area Fitter Hand Device Identifier Shelf Expiration Date Model / Serial / Lot Mesh Vicryl 12 X 12 Vkm-L - [id number] Implanted:Qty: 1 on 01/16/2023 by Willian Phillips MD at [place] [facility] [place] N/A: Abdomen JNJ : [employer] 01/15/2026 VKM-L / / [id number] documented as of this encounter Visit Diagnoses Diagnosis Encounter for Nexplanon removal- Primary Surveillance of previously prescribed implantable subdermal contraceptive documented in this encounter Administered Medications Inactive Administered Medications - up to 3 most recent administrations Medication Order MAR Action Action Date Dose Rate Site lidocaine 2 % inj 40 mg 40 mg (2 mL), Subcutaneous, ONCE, On 09/26/24 at 1400, For 1 doseIndications:Encounte r for Nexplanon removal Given 09/26/2024 11:00 AM EDT 40 mg Deltoid Left Upper documented in this encounter Advance Directives * Full Code (Latest Code Status on File) Date Activated Date Inactivated Comments 01/16/2023 2:29 PM 01/18/2023 7:01 PM This order r eflects the patients wishes and were consensually agreed upon. Question Answer Comments Discussion of Advance Direct dajuan occurred with: Not Discussed due to patient's condition * Full Code Date Activated Date Inactivated Comments 01/16/2023 9:09 AM 01/16/2023 2:29 PM This order r eflects the patients wishes and were consensually agreed upon. Question Answer Comments Discussion of Advance Direct dajuan occurred with: Not Discussed due to patient's condition Care Teams Director Of Online Education Relationship Specialty Start Date End Date Mariama Scott MD [address] [place] [address] PCP - General Internal Medicine 07/29/18 documented as of this encounter
--- OUTSIDE RECORDS SUMMARY | 2024-09-27 10:25 | External Medical Summary | Summary of Care ---
Author Name Unknown Organization [facility] Address [address] [place] [address] Phone [phone] Care Team Providers Care Product Marketing Coordinator Name Role Phone Mariama Scott MD Primary Care Provider + Reason for Visit * Reason Comments Mounter Clarinets Return Nexplanon removal Encounter Details Date Type Department Care Team (Late st Contact Info) Description 09/26/2024 11:00 AM EDT Office Visit Gynecology/Obstetric Felice ackerman [address] [facility] [place] [address] Kaila Durand PA-C [address] [place] [address] Encounter for Nexplanon removal* Allergies No [...] NOT ABDOMEN ONCE DISCHARGED TO HOME FROM [facility]) 5 Active oxyCODONE-Aceta minophen 5-325 MG Oral Tablet (Percocet) TAKE ONE TABLET BY MOUTH EVERY 4 HOURS NEEDED FOR PAIN FOR 3 DAYS 5 Active Hospital, Clinic, or Other Facility Administered Medication Ordered Dose Route Frequency Start Date End Date Status Vitamin B-12 (Cyanocobalamin) inj 1,000 mcgIndications:Intestinal postoperative nonabsorption 1000 mcg IM [id number] 06/07/2024 05/09/20 25 Active lidocaine 2 % inj 40 mgIndications:Encounter for Nexplanon removal 40 mg SC ONCE 09/26/2024 09/26/2024 Ended documented as of this encounter (statuses as of 09/26/2024) Active Problems Problem Noted Date Diagnosed Date 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 She is having brachioplasty tomorrow with [facility] and was advised that nexplanon needed to [...] AM EDT Chief Complaint Patient presents with Mounter Clarinets Return Nexplanon removal Pt here for Nexplanon removal. Brachioplasty scheduled for tomorrow documented in this encounter Plan of Treatment Upcoming Encounters Date Type Department Care Team (Sommer Contact Info) Description 01/17/2025 9:30 AM EDT Telemedicine General Surgery, [place] [address] [place] [address] Yunior Cobb PA-C [address] [place] [address] 03/07/2025 3:40 PM EDT [facility] [address] [place] [phone] Janna Philippe, [address] [place] [address] 03/21/2025 8:00 AM EDT Office Visit General Internal Medicine [facility] [address] [facility] [place] [address] Mariama Scott MD [address] [facility] [place] [address] Scheduled Orders Name Type Priority Associated Diagnoses [...] this encounter Medical Devices Implanted Type Area Counter Pocket Trimmer Device Identifier Shelf Expiration Date Model / Serial / Lot Mesh Vicryl 12 X 12 Vkm-L - [id number] Implanted:Qty: 1 on 01/16/2023 by Willian Phillips MD at OR [facility] [place] N/A: Abdomen JNJ : [employer] 01/15/2026 [...] Discussed due to patient's condition Care Teams Product Marketing Coordinator Relationship Specialty Start Date End Date Mariama Scott MD [address] [place] [address] PCP - General Internal Medicine 07/29/18 documented as of this encounter
[2024-09-27] MEDS ORDERED: SUGAMMADEX SODIUM 200 MG/2 ML VIAL IV ONE (11:56)
[2024-09-27] MEDS: TRANEXAMIC ACID 1,000 MG **IV Pre-op IV SCH (13:32)
[2024-09-27] MEDS ORDERED: ePHEDrine sulfate 50 MG/5 ML SYR ONE (14:45)
--- NOTE | 2024-09-27 15:36 | Post Operative Brief Note ---
PG Immediate Post Op with CF Date of Surgery September 27, 2024 Pre & Post Diagnosis Operation Date: 09/27/24 07:30 Pre-Op Diagnosis: Abdominal Pannus, Encounter for Cosmetic Procedure Post-Op Diagnosis: Abdominal Pannus, Encounter for Cosmetic Procedure I identified the patient and participated in the time-out.: Yes Procedure Operation Date: 09/27/24 07:30 Actual Procedures p Panniculectomy (Insurance times: [phone], [phone]) (Cosmetic Times: [phone], [phone])(Not Applicable) - Lazara Nguyen MD s with Add-On Nmfuv-Sc-Dey Abdominoplasty(Not Applicable) - Lazara Nguyen MD s Bilateral Brachioplasty(Bilateral) - Lazara Nguyen MD Surgeon Lazara Nguyen MD Airframe And Powerplant Technician Alysha Snow PA-C, April Pearce PA-C Estimated Blood Loss 100 Findings Consistent with Post-Op Diagnosis Specimens Specimen Description: A: Abdominal Pannus Drains Se[place]ira Catheter (inserted after induction of anesthesia by Chanel Leon RN without difficulty) and Kong-Farmer Drain (5)
--- NOTE | 2024-09-27 15:41 | Operative Report ---
PG Post Operative Report Pre & Post Diagnosis Operation Date: 09/27/24 07:30 Pre-Op Diagnosis: Abdominal Pannus, Encounter for Cosmetic Procedure Post-Op Diagnosis: Abdominal Pannus, Encounter for Cosmetic Procedure I identified the patient and participated in the time-out.: Yes Procedure Operation Date: 09/27/24 07:30 Actual Procedures p Panniculectomy (Insurance times: [id number], [id number]) (Cosmetic Times: 36- 111, 1240-)(Not Applicable) - Lazara Nguyen MD s with Add-On Sxtiv-Rn-Gjy Abdominoplasty(Not Applicable) - Lazraa Nguyen MD s Bilateral Brachioplasty(Bilateral) - Lazara Nguyen MD Surgeon Lazara Nguyen MD Major Sales Associate Alysha Snow PA-C, April Pearce PA-C Estimated Blood Loss 100 Findings Consistent with Post-Op Diagnosis Specimens abdominal pannus Drains DIANA x5 Anesthesia Type General Complications none Indications s/p 150 lb weight loss, overhanging abdominal skin with intertrigo, desiring cosmetic improvement in arms Description of Procedure Risks, benefits, and alternatives of the procedure were explained to the patient who agreed and signed consent. She was identified and marked in the preoperative holding area. She was brought to the operating room where she was positioned supine and placed under general anesthesia without incident. Sequeira catheter was placed. Surgical site was prepped and draped sterilely. A time-out procedure was performed. I reassessed my markings which included a lower horizontal abdominal incision with the midportion [] cm above the vulvar commissure. Incision was marked bilaterally to the ASIS. I began by injecting 1% lidocaine with epinephrine along the planned incision. The lower abdominal incision was made using a 15- blade scalpel to incise epidermis and superficial dermis followed by elec trocautery to incise deep dermis, subcutaneous fat, Winnie's fascia down to the abdominal wall. Care was taken to bevel superiorly in order to avoid encountering the inguinal region. Electrocautery was used to elevate the anterior abdominal skin flap ligating the perforating vessels with 3-0 Vicryl ties and electrocautery. Dissection was carried up to the level of the umbilicus in the midline. At this point, a 15-blade scalpel was used to circumscribe the umbilicus. A vertical midline incision was then made from the incision to the umbilicus and divided in the midline using electrocautery. The umbilicus was then dissected out using electrocautery down to abdominal wall. The umbilical stalk appeared viable throughout the procedure. Skin flaps were marked for excision. A 15-blade scalpel was used to make these incisions and the incision was deepened through dermis, subcutaneous fat, Winnie's fat using electrocautery. Subscarpal fat was resected directly. At this point, staff was notified that the next portion of the procedure was cosmetic in nature and the time is reflected in the nursing notes. Prior hall were confirmed using tailor tacking and the inverted V incision was made using a 15 blade scalpel and deepened through the dermis and subcutaneous tissue using electrocautery. Dissection of the skin and underlying subcutaneous tissue was undertaken at the level of the rectus fascia to the xiphoid process. I began repair of the rectus diastasis, which was about 3 cm in greatest diameter and extended nearly the full length of the abdomen, widest above the umbilicus. Plication from the xiphoid to the umbilicus and from the umbilicus to the pubic symphysis was performed using 0 Prolene interrupted [id number]-gy-[id number] sutures. 0 Prolene running suture was then placed to oversew the [id number]-dx-[id number] sutures and reinforced the repair. Hemostasis was achieved, about 2 cc of Tisseel was sprayed into the upper abdominal wound. 2-0 Vicryl suture was used to reappr oximate Winnie's fascia and deep dermis. At this point, the bed was flexed and the flaps were advanced and tacked to the incision above the mons pubis using 2- 0 Vicryl suture. Nursing staff was again notified cosmetic portion was ending.After achieving hemostasis with electrocautery, Tisseel was sprayed in the wound bed to minimize likelihood of hematoma or seroma and facilitate flap adherence. All skin edges did appear to be viable following this portion of the procedure. A total of 3 15 Slov[place] Arthur drains were placed in the wound bed and brought out through a separate stab incision in the mons pubis. The drains were sutured into place using 3-0 nylon. The umbilicus was brought out through an inverted triangular incision in the abdominal wall. The remainder of the upper abdominal incision was closed using 2-0 PDO running superficial Quill suture and 3-0 Monocryl running subcuticular suture superior to the umbilicus, 3-0 PDS interrupted superficial dermal sutures inferior to the umbilicus followed by running subcuticular Monocryl. Nurses were again notified that the cosmetic portion of the procedure was resuming and the time was marked in nursing documentation. Horizontal wound closure was then begun lateral to medial using 2-0 Vicryl Winnie's fascia sutures, 2-0 Vicryl deep dermal sutures, 2-0 PDO running superficial Quill suture, 3-0 Monocryl running subcuticular roberson ture. Umbilicus was brought out through the inverted triangle incision and was sutured into place using 4-0 chromic half buried horizontal mattress sutures. The umbilicus was dressed using Xeroform and the incision was dressed using Sylke and dry dressings and a binder were placed at the end of the case. Attention was then turned to the brachioplasty portion of the procedure. Nursing staff was notified that the brachioplasty portion of the procedure was cosmetic in nature and time was marked.Markings were reassessed. Lesions were marked just above the bicipital groove and at the dome of the axilla, extending down the lateral chest wall to address skin laxity. 1% lidocaine with epinephrine was used to anesthetize the planned incisions. I began with the left arm. 15 blade scalpel made the upper incision through skin which was deepened using electrocautery through dermis, simultaneous fat, superficial fascia. Dissection of the skin flap was performed above the deep fascia leaving some subcutaneous tissue to protect the median antebrachial cutaneous nerve at the elbow. Similarly, more shallow dissection was performed in the axilla to protect the lymphatics and axillary structures. The anterior incision was then made down the lateral chest wall and this was elevated in similar fashion. The incision in the axilla was planned in an L-shape, similar to a [place] incision. The apex of the flap was inset into the axillary dome using 0 Nurolon interrupted sutures to tack the superficial fascial system to the clavicopectoral fascia. Skin resection was then performed in segmental fashion in order to allow for maximal resection with minimal skin tension. This was performed by dividing the skin flaps in segments and tailor tacking these areas to allow for excision. The wound was then temporarily stapled in sequential fashion the arm and along the lateral chest wall. Once I was satisfied with the skin resection and temporary closure of the left arm, similar procedure was undertaken on the right side. Should be noted the patient had additional excess skin of the left axilla and excess skin of the right arm which was also noted by the patient preoperatively. Once I was satisfied with the skin resection on the left side, temporary closure was performed. DIANA drains were placed into both wound beds prior to closure. They were sutured into place using 3-0 nylon suture. Simultaneous wound closure was then undertaken on both arms using 2-0 Vicryl superficial fascial sutures, 2-0 Vicryl deep dermal sutures, 3-0 PDO Quill suture, which was performed in 2 segments so as not to cross the axilla with one continuous running suture. 3-0 Monocryl suture was then run in the subcuticular plane, also in 2 segments. Sylke dressing was applied to both incisions. Xeroform was placed around the drains. Dry dressings followed by a compression garment were placed Following the procedure, there was excellent symmetry and contour of both arms. Procedure was tolerated well. The patient was awakened and transferred to the recovery room in satisfactory condition. Alysha Snow PA-C and April Pearce PA-C served as surgical assistants, assisting in retraction, hemostasis and simultaneous wound closure. I attest to the content of the Intraoperative Record and any orders documented therein. Any exceptions are noted below.
[2024-09-27] MEDS: BUPIVACAINE 0.25% PF 30 ML VIAL ONE ×2 (16:22)
[2024-09-27] MEDS: BUPIVACAINE 0.25% PF 30 ML VIAL INFIL ONE (16:22)
[2024-09-27] MEDS: LIDOCAINE 1%/EPINEPHRINE 1:100,000 50 ML VIAL INFIL ONE (16:22)
[2024-09-27] MEDS: LIDOCAINE 1%/EPINEPHRINE 1:100,000 50 ML VIAL ONE (16:22)
[2024-09-27] MEDS: HYDROmorphone INJ 1 MG/ML SYRINGE IV PRN (17:00)
[2024-09-27] MEDS ORDERED: diphenhydrAMINE Capsule 25 MG CAP PO PRN (18:07)
[2024-09-27] MEDS ORDERED: diphenhydrAMINE 50 MG/ML VIAL IV PRN (18:07)
[2024-09-27] MEDS ORDERED: oxyCODONE/ACETAMINOPHEN 5mg/325mg TAB PO PRN (18:07)
[2024-09-27] MEDS ORDERED: PROMETHAZINE 12.5 MG/50.5 ML BAG IV PRN (18:07)
[2024-09-27] MEDS ORDERED: LORazepam 0.5 MG TAB PO PRN (18:07)
[2024-09-27] MEDS ORDERED: MoRPHine SULFATE 2 MG/ML CARP IV PRN (18:07)
[2024-09-27] MEDS: CHECK SCOPOLAMINE PATCH PLACEMENT SCH (18:17)
[2024-09-27 18:29] VITALS: RESP 18
[2024-09-27] MEDS: oxyCODONE/ACETAMINOPHEN 5mg/325mg TAB PO PRN (19:40)
--- NOTE | 2024-09-27 19:54 | Anesthesiology Progress Note ---
Date of Service September 27, 2024 Anesthesia Post Procedure Vital Signs Vital Signs: Temp Pulse Pulse Resp BP BP Pulse Ox 09/27/24 19:02 36.8 C 75 18 146/86 H 95 09/27/24 18:27 36.3 C L 65 18 149/88 H 95 09/27/24 18:08 36.4 C L 65 17 123/82 100 09/27/24 17:40 67 15 141/78 H 98 09/27/24 17:30 70 16 159/78 H 100 09/27/24 17:20 65 14 161/89 H 98 09/27/24 17:10 50 L 12 147/86 H 100 09/27/24 17:00 56 L 12 151/87 H 100 09/27/24 16:50 61 15 159/85 H 148/86 H 100 09/27/24 16:40 61 13 151/79 H 143/76 H 100 09/27/24 16:30 52 L 14 142/72 H 142/78 H 100 09/27/24 16:20 35.5 C L 60 12 132/87 100 09/27/24 06:11 37.0 C 68 18 154/92 H 97 O2 Del Method O2 Flow Rate 09/27/24 19:02 Room Air 09/27/24 18:27 Room Air 09/27/24 18:08 Room Air 09/27/24 17:40 Room Air 09/27/24 17:30 Room Air 09/27/24 17:20 Room Air 09/27/24 17:10 Room Air 09/27/24 17:00 Room Air 09/27/24 16:50 Room Air 09/27/24 16:40 Oxymask 3 09/27/24 16:30 Oxymask 6 09/27/24 16:20 Oxymask 6 09/27/24 06:11 Room Air Pain Intensity Right Arm: Pain Intensity: 8 Transfer of Care Handoff Completed per policy Notes Mental Status: alert / awake / arousable Patient Amnestic to Procedure: Yes Nausea / Vomiting: adequately controlled Pain: adequately controlled Airway Patency, RR, SpO2: stable & adequate BP & HR: stable & adequate Hydration State: stable & adequate Anesthetic Complications: no major complications apparent
[2024-09-27] MEDS: ENOXAPARIN INJ 40 MG/0.4 ML SYR SQ ONE (20:57)
[2024-09-27] MEDS: LABETALOL HCL 200 MG TAB PO SCH (20:58)
[2024-09-27] MEDS: MoRPHine SULFATE 2 MG/ML CARP IV PRN (22:38)
[2024-09-28] MEDS: ACETAMINOPHEN 325 MG TAB PO PRN (01:59)
[2024-09-28 07:19] VITALS: TEMP 98.2
--- NOTE | 2024-09-28 07:31 | Surgery Progress Note ---
Date of Service September 28, 2024 Assessment & Plan (1) Excess skin of abdomen: Plan: Doing well. Sequeira removed- must void prior to dc home. Will f/u in the office tomorrow. Admission and Anticipated Discharge Date Admission Date: September 27, 2024 Subjective Debo is s/p brachioplasty and jose [place] panniculectomy. She is doing well, has good pain control. Sequeira was removed but she has not voided yet. Physical Exam Physical Exam: drains with serosang output. incisions CDI, healing well without erythema or bleeding Results & Data Vital Signs (Past 12 Hours) Vital Signs Temp Pulse Pulse Resp BP Pulse Ox O2 Del Method 09/28/24 07:18 36.8 C 70 18 106/59 L 95 Room Air 09/28/24 04:00 37.2 C 73 18 127/71 98 Room Air 09/28/24 00:43 37.0 C 79 18 118/73 96 Room Air 09/27/24 22:08 CPAP 09/27/24 20:58 36.5 C 78 18 145/74 H 98 Room Air 09/27/24 20:00 36.5 C 76 18 148/70 H 96 Room Air PG Care Time/CCT Total # of Minutes Spent Total Time Spent with Patient: Total time spent is greater than 50% in coordination of care (as documented) at patient's floor/unit and/or counseling patient: Coding Level of Care Code 99147 Post Operative Follow-Up Diagnoses Excess skin of abdomen L98.7
[2024-09-28] MEDS: ESCITALOPRAM OXALATE 20 MG TAB PO SCH (08:54)
[2024-09-28] MEDS: LOSARTAN POTASSIUM 50 MG TAB PO SCH (08:55)
[2024-09-28] MEDS: hydroCHLOROthiazide 25 MG TAB PO SCH (08:55)
[2024-09-28] MEDS: MULTIVITAMIN TAB PO SCH (08:56)
[2024-09-28] MEDS ORDERED: NON-FORMULARY MEDICATION (Potassium Gluconate 550 mg (90 mg) Tablet) PO SCH (09:00)
[2024-09-28 11:15] VITALS: BP 108/71; PULSE 61; O2SAT 97
--- NOTE | 2024-09-29 08:49 | Discharge Summary ---
Date of Service September 29, 2024 Admission HPI Per Admitting Provider Patient with history of weight loss and excess skin. Admission Exam Per Admitting Provider excess skin of the abdomen and arms Principal Diagnosis abdominal pannus Discharge Exam drains with serosang output. incisions CDI, healing well without erythema or bleeding Discharge Data Allergies Allergy/AdvReac Type Severity Reaction Status Date / Time No Known Allergies Allergy Mild Verified 09/27/24 06:07 Procedures Performed Operation Date: 09/27/24 07:30 Actual Procedures p Panniculectomy (Insurance times: [id number], [phone]) (Cosmetic Times: [phone], [phone])(Not Applicable) - Lazara Nguyen MD s with Add-On Dcrla-Yq-Qtc Abdominoplasty(Not Applicable) - Lazara Nguyen MD s Bilateral Brachioplasty(Bilateral) - Lazara Nguyen MD Hospital Course (1) Excess skin of abdomen: Patient presented to [facility] with history of abdominal pannus and excess skin of her arms. She was taken to the OR and underwent [place] panniculectomy and bilateral brachioplasty. There were no intraoperative complications. She was taken to recovery and transferred to med/surg for observation. On POD#1, she was feeling well. She was tolerating a regular diet and ambulating. She was able to void after catheter was removed. On exam, her vitals were stable. Her incisions were CDI. Her drains had appropriate output. She was discharged home with instructions to follow-up in the office in one day. Total Time Total Time Spent Total Time Spent (In Minutes): 15 Discharge Plan Discharge Items Patient Disposition: Home - Self-Care Reason For Visit: Abdominal Pannus, Encounter for Cosmetic Procedure Discharge Diagnosis: s/p brachioplasty and jose de lis panniculectomy Activity: As commented below Non-emergency contact: Surgeon Call non-emergency contact if: you have any medication questions, your pain is not controlled and you have a fever Follow-up/Referrals: Alysha Snow PA-C [Physician Telemarketing Manager] - Mariama Scott MD [Primary Care Provider] - Diet: Regular Addtl Attending Provider Instructions: ACTIVITY RECOMMENDATIONS: __Normal activities _x_No bending, lifting or straining __No driving __Driving allowed when you are off pain medications _x_Walking permitted __You should have help at home for ___ days __You may return to previous diet. DRESSINGS: __No dressings required _x_Keep dressings dry/in place until first office visit __Remove dressings ___ and leave dressings off __Apply ice ___ days __Remove dressings and reapply garment __Apply antibiotic ointment (Bacitracin, Neosporin, etc) to wounds 3-4 times/day for 10 days BATHING: _x_Keep dressings dry _x_Sponge bathing permitted __Showering permitted _x_No swimming, hot tubs or soaking in a tub MEDICATIONS: Resume previous medications unless instructed otherwise by your surgeon. _x_Do not use aspirin, Motrin, Advil or Ibuprofen as these may promote bleeding. Please use Tylenol. _x_Prescription(s) provided: pain medication was provided at your last office visit OTHER INSTRUCTIONS: _x_Record drain output 2-3 times per day SPECIAL CARE INSTRUCTIONS: * It is normal to have a mild fever after surgery. If your temperature is higher than 101.5 degrees F, please call the office at [phone]. * Constipation is a typical side effect of pain medication. An oxhd-mxg-[id number] stool softener will help relieve this. * Leaking around surgical drains may occur and should not cause concern. Sometimes these drains become clogged. If this happens, remove the bulb and milk the clot out of the tube, then replace the bulb. * Drainage from wounds after liposuction is normal and should be expected. Garments will become soiled. You should protect furniture and bedding. This drainage should mostly subside within 2-3 days. Leave garments in place unless instructed to remove them. * If you have unusual drainage from a wound or are concerned you have an infection or have any questions or concerns, please call the office at [phone]. FOLLOW UP VISIT: If not already scheduled, please call the office, , when you return home after surgery to schedule an appointment to be seen in _1__ days. Pending Studies at Discharge: Yes Stand-Alone Forms: [facility], Smoking Cessation Medications and DC Order Prescriptions: Continued gabapentin 300 mg Capsule 300 mg PO HS PRN (Reason: restless leg) Qty: 0 escitalopram oxalate [Lexapro] 20 mg tablet 20 mg PO QAM hydrochlorothiazide 12.5 mg tablet 12.5 mg PO QAM calcium citrate-vitamin D3 500 mg-12.5 mcg (500 unit) tablet,chewable 1 tab PO DAILY Hold Instructions: surgery zinc gluconate 100 mg tablet 100 mg PO DAILY Hold Instructions: surgery labetalol 200 mg tablet 200 mg PO BID losartan 100 mg tablet 100 mg PO QAM potassium gluconate 550 mg (90 mg) Tablet 550 mg PO DAILY Discharge Orders: Discharge Order (Routine); Ordered 09/28/24 Ordered By: Alysha Mcdonald/Other Patient Handouts: Kong Farmer Drain Tube Dc Admission Data Admit Date/Time: 09/27/24 15:56 Attending Provider: Lazara Nguyen Admit Provider: Lazara Nguyen Primary Care Provider: Mariama Scott Other Interventions: Discharge Summary Assessment (RN) Last Done: 09/28/24 11:20 Coding Level of Care Code 00434 OBS Care - Discharge Diagnoses Excess skin of abdomen L98.7
== END 2024-09-28 13:18 | disposition home or self-care (01) ==
LOC: ASU 05:53 → 3W 05:53